=== PATIENT | male | born 1950 | race Caucasian/White ===

== ENCOUNTER 2019-08-03 11:25 | Emergency (ER) | payer MEDICARE, SELFPAY ==
--- NOTE | ~2019-08-03 | CT_ITS ---
EXAMINATION: CT BRAIN W/O DATE: 08/03/2019 12:28 INDICATION: Dizziness. Near syncope. TECHNIQUE: Computed tomography (CT) of the head was performed without intravenous contrast. The dose- length product was 605.33 mGy-cm. The mA was adjusted according to patient size. Iterative reconstruc tion technique was employed. COMPARISON: No prior studies for comparison. FINDINGS: Normal brain parenchymal volume for age. Normal gan-white differentiation. No acute intrac ranial hemorrhage, infarction, mass or mass effect. There are scattered mild periventricular and subc ortical white matter changes, most likely related to small vessel ischemic disease (microangiopathy). No ventriculomegaly or midline shift. Midline sagittal images demonstrate a normal corpus callosum, c raniovertebral junction and sella turcica. Basilar cisterns are patent. Paranasal sinuses and mastoids are pneumatized. No depressed skull fractures. IMPRESSION: 1. No acute intracranial abnormality. Reviewed, dictated and finalized at location A.
--- NOTE | ~2019-08-03 | XR_ITS ---
EXAMINATION: XR chest 2V 08/03/2019 12:28 INDICATION: Dizziness. Bradycardia. PROCEDURE: Two-view chest COMPARISON: No prior studies for comparison. FINDINGS: The lungs are clear. The cardiomediastinal silhouette is within normal limits. There are no pleural effusions. There is no pneumothorax suspected. IMPRESSION: 1: NO ACUTE CARDIOPULMONARY DISEASE. Reviewed, dictated and finalized at location A.
[2019-08-03 11:28] VITALS: BP 197/95; PULSE 57
[2019-08-03 11:30] VITALS: BP 172/101; PULSE 55; RESP 18; TEMP 36.4; O2SAT 100
[2019-08-03 11:32] VITALS: BP 169/92; PULSE 57
--- NOTE | 2019-08-03 11:42 | ED.DIZZY ---
HPI - Dizziness General Chief Complaint: Dizziness Stated Complaint: Dizziness,Light headed Time Seen by Provider: 08/03/19 11:42 Source: patient Mode of arrival: ambulatory Limitations: no limitations History of Present Illness HPI Narrative: 69-year-old man comes in today complaining of feeling dizzy lightheaded overnight. He states that about 2:00 a.m. he got up to the bathroom and felt lightheaded and room spinning which he described as almost like vertigo. Said he had some nausea with it. He states that he had to sit down for approximately 5 minutes before his symptom would resolve. He had several other episodes all of which would resolve with rest. he states he had a mild headache with episodes. He denies chest pain, shortness of breath, vomiting, abdominal pain, diarrhea, black or bloody stools, dysuria, hematuria, and fever. MD elicited complaint: dizziness and lightheadedness Onset (ago): hour(s) (10) Timing: sudden onset Severity: moderate Description: room spinning and lightheadedness Context: change in body position History of similar symptoms: No Exacerbating factors: movement/ambulation Relieving factors: remaining still Associated symptoms: nausea and weakness Related Data Home Medications Medication Instructions Recorded Confirmed atorvastatin 40 mg PO HS 08/03/19 08/03/19 chlorthalidone 25 mg PO DAILY 08/03/19 08/03/19 epinephrine 0.3 ml SUBCUT PRN 08/03/19 08/03/19 hydrocodone-acetaminophen 1 tablet PO PRN 08/03/19 08/03/19 losartan 25 mg PO DAILY 08/03/19 08/03/19 meloxicam 15 mg PO DAILY 08/03/19 08/03/19 omeprazole 20 mg PO DAILY 08/03/19 08/03/19 sertraline 100 mg PO DAILY 08/03/19 08/03/19 Allergies Allergy/AdvReac Type Severity Reaction Status Date / Time No Known Allergies Allergy Verified 08/03/19 11:47 Review of Systems Constitutional: Constitutional: Denies chills, Denies fever(s) and Reports weakness Eyes: Eyes: Denies change in vision and Denies photophobia ENT: Denies dysphagia, Denies nasal congestion and Denies sore throat Cardiovascular: Cardiovascular: Denies chest pain and Denies radiating jaw, neck or arm pain Respiratory: Respiratory: Denies cough, Denies dyspnea and Denies wheezing Gastrointestinal: Gastrointestinal: Denies abdominal pain, Denies diarrhea, Denies nausea and Denies vomiting Genitourinary: Genitourinary: Denies hematuria, Denies dysuria and Denies urinary frequency Integumentary/Breasts: Skin/Breast: Denies pruritus, Denies erythema and Denies rash Neurologic: Denies confusion, Denies vertigo, Denies dizziness, Denies syncope, Reports headache(s) and Denies numbness Hematologic/Lymphatic: Hematologic/Lymphatic: Denies easy bleeding and Denies easy bruising Allergic/Immunologic: Allergic/Immunologic: Denies lip swelling and Denies wheezing PMFSH Past Medical History Medical History Chronic inflammatory demyelinating polyneuropathy Colorectal cancer Hypercholesterolemia Hypertension Surgical History Surgical History H/O neck surgery History of ankle surgery History of colon surgery Social History Social History Smoking status: Never smoker Substance use: current Substance use type: marijuana Living arrangements: with family Exam Const: General: healthy appearing, no acute distress and alert Orientation/consciousness: patient oriented x3 HENMT: Head: normal to inspection Ears: TM's normal bilaterally and EAC's normal Face and sinus: normal facial exam Mouth: Yes Normal oral and palatal mucosa present and Yes moist mucous membranes Throat: posterior oropharynx normal and uvula midline Eyes: Conjunctivae: conjunctivae normal Pupils: Equal, round and reactive pupils present EOM: EOMs intact bilaterally Resp: Effort & Inspection: normal respiratory effo
--- NOTE | 2019-08-03 11:53 | ECG_ITS ---
Measurements Intervals [place] Rate: 47 P: 0 CO: 188 QRS: 48 QRSD: 105 T: 63 QT: 404 QTc: 359 Interpretive Statements SINUS BRADYCARDIA ABNORMAL ECG Electronically Signed On 08-03-2019 12:27:29 CDT by Zhao Mari D.O.
[2019-08-03 12:00] VITALS: BP 153/68; PULSE 48; RESP 15; O2SAT 98
[2019-08-03 12:14] LABS: Hematocrit 41.7 % (37.0-46.0); Hemoglobin 14.5 g/dL (12.4-15.3); Mean Corpuscular HGB Conc 34.8 g/dL (32.0-36.0); Mean Corpuscular Hemoglobin 29.1 pg (27.0-31.0); Mean Corpuscular Volume 83.6 fL (78.0-102.0); Mean Platelet Volume 10.5 fl (8.7-11.0); Platelet Count Result 159 K/mm3 (150-420); Red Blood Count 4.99 M/mm3 (4.70-6.10); Red Cell Distribution Width 12.3 % (11.6-14.4); White Blood Count 3.3 K/mm3 (4.8-10.8)
[2019-08-03 12:28] LABS: Partial Thromboplastin Time 27.8 SEC (22.3-31.6); Prothrombin Time 10.3 Seconds (9.64-11.0)
[2019-08-03 12:30] VITALS: BP 165/76; PULSE 55; RESP 20; O2SAT 99
[2019-08-03 12:37] LABS: Band Neutrophils Percent 0 % (0-6); Basophils Percent Manual 0 % (0-1); Eosinophils Absolute Manual 0.19 K/mm3 (0.02-0.5); Eosinophils Percent Manual 6 % (1-6); Lymphocytes Absolute Manual 0.62 K/mm3 (1.1-4.5); Lymphocytes Percent Manual 19 % (18-44); Monocytes Absolute Manual 0.33 K/mm3 (0.1-0.90); Monocytes Percent Manual 10 % (3-9); Neutrophils Absolute Manual 2.14 K/mm3 (1.3-6.7); Neutrophils Percent Manual 65 % (46-73); Platelet Estimate Adequate (Adequate); Total Cells Counted 100
[2019-08-03 12:41] LABS: Alanine Aminotransferase 62 U/L (16-63); Albumin Level 3.8 g/dL (3.4-5.0); Alkaline Phosphatase 99 U/L (46-116); Anion Gap 12.1 mmol/L (7-16); Aspartate Amino Transferase 38 U/L (15-37); Bilirubin,Total 0.7 mg/dL (0.00-1.00); Blood Urea Nitrogen 22 mg/dL (7-18); Calcium 8.6 mg/dL (8.5-10.1); Carbon Dioxide 27 mmol/L (21-32); Chloride 103 mmol/L (98-108); Estimated CRCL calculation 90 ml/min; Estimated Glomerular Filt Rate > 60; Glucose 121 mg/dL (70-99); Magnesium 1.6 mg/dL (1.8-2.4); Osmolality Calculated 290 mOsm/kg (285-295); Phosphorus 2.9 mg/dL (2.6-4.7); Potassium 4.1 mmol/L (3.5-5.1); Sodium 138 mmol/L (136-145); Total Protein 7.6 g/dL (6.4-8.2)
[2019-08-03 12:42] LABS: Thyroid Stimulating Hormone Reflex 3.38 u/IU/mL (0.36-3.74); Troponin I < 0.02 ng/mL (0.00-0.056)
[2019-08-03 12:56] LABS: Add Urine Microscopic? NO; Appearance Urine Clear (Clear); Bilirubin Urine Negative (Negative); Blood Urine Negative (Negative); Color Urine Yellow (Yellow); Glucose Urine UA Negative (Negative); Ketones Urine Negative (Negative); Leukocyte Esterase Ur Negative LEU/UL (Negative); Nitrate Urine Negative (Negative); Protein Urine Negative (Negative); Specific Grav Ur 1.015 (1.010-1.020); Urobilinogen Urine 0.2 mg/dL (0.2-1.0); pH Urine 5.5 (5.0-8.0)
[2019-08-03 13:03] LABS: Occult Blood Negative (Negative)
[2019-08-03] MEDS: SODIUM CHLORIDE 0.9% IV 1,000 ML 999 ML IV CONT (13:20)
[2019-08-03 14:22] VITALS: BP 172/87; PULSE 50; RESP 15; O2SAT 99
== END 2019-08-03 14:22 | disposition home or self-care (01) ==
PROVIDERS: Emergency Provider Emergency Medicine; PCP Family Medicine
DX: R42 Dizziness and giddiness (principal); Z85.038 Personal history of other malignant neoplasm of large intestine; E78.00 Pure hypercholesterolemia, unspecified; I10 Essential (primary) hypertension; Z79.899 Other long term (current) drug therapy
CPT/HCPCS: 36415; 70450; 71046; 80053; 81003; 83735; 84100; 84443; 84484; 85025; 85610; 85730; 93005; 96360; 99284; J7030

== ENCOUNTER 2021-02-27 10:56 | Emergency (ER) | payer MEDICARE, SELFPAY ==
--- NOTE | ~2021-02-27 | XR_ITS ---
XR forearm LT 2V DATE: 02/27/2021 11:36 INDICATION: Injury, laceration at mid forearm TECHNIQUE: AP and lateral views COMPARISON: None FINDINGS: Prominent dorsal olecranon process spur. Coronoid process spurring. No fracture or dislocation, periosteal reaction or bone destruction. There is a soft tissue laceration along the mid to distal forearm laterally. No radiopaque soft tissu e foreign body. Osteoarthritis at the first carpometacarpal joint. IMPRESSION: Soft tissue laceration; no radiographic foreign body No fracture or dislocation Reviewed, dictated and finalized at location A. R PURIFICATION CHEMIST
[2021-02-27 11:15] VITALS: BP 145/105; PULSE 96; RESP 16; TEMP 37.1; O2SAT 98
--- NOTE | 2021-02-27 11:36 | ED.UPPEXIN ---
HPI - Extremity Injury (Upper) General Chief Complaint: Extremity Injury, Upper Stated Complaint: left arm injury Time Seen by Provider: 02/27/21 10:58 Source: patient and RN notes reviewed Mode of arrival: ambulatory Limitations: no limitations History of Present Illness HPI narrative: laceration to left forearm complaint: injury to: left and forearm Onset (ago): hour(s) (1) Other Extremity Injury: Left: forearm Other injuries: none Place: home Severity: mild Severity scale (1-10): 2 Relieving factors: none Exacerbating factors: none Context: laceration Associated symptoms: denies other symptoms Treatments prior to arrival: bandage Related Data Home Medications Medication Instructions Recorded Confirmed atorvastatin 25 mg PO HS 08/03/19 02/27/21 chlorthalidone 25 mg PO DAILY 08/03/19 08/03/19 epinephrine 0.3 ml SUBCUT PRN 08/03/19 08/03/19 losartan 50 mg PO DAILY 08/03/19 02/27/21 meloxicam 50 mg PO DAILY 08/03/19 02/27/21 sertraline 100 mg PO DAILY 08/03/19 02/27/21 Allergies Allergy/AdvReac Type Severity Reaction Status Date / Time No Known Allergies Allergy Verified 08/03/19 11:47 Review of Systems Review of Systems: All systems reviewed & are unremarkable except as noted in HPI and below PMFSH Past Medical History Medical History (Updated 02/27/21 @ 12:40 by Eddie Montgomery MD) Chronic inflammatory demyelinating polyneuropathy Colorectal cancer Hypercholesterolemia Hypertension Surgical History Surgical History H/O neck surgery History of ankle surgery History of colon surgery Social History Social History Smoking status: Never smoker Substance use: current Substance use type: marijuana Exam Const: General: no acute distress and alert Orientation/consciousness: patient oriented x3 HENMT: Head: normal to inspection Ears: external ears normal and TM's normal bilaterally General nose exam: Normal external nose present and Normal nares present Mouth: Yes lip normal and Yes moist mucous membranes Eyes: Conjunctivae: conjunctivae normal Pupils: Equal, round and reactive pupils present EOM: EOMs intact bilaterally Neck: Neck: normal visual inspection and no lymphadenopathy Chest: Chest palpation & inspection: normal inspection of the chest Resp: Effort & Inspection: normal respiratory effort Auscultation: clear to auscultation bilaterally Cardio: Rate: regular rate Rhythm: regular rhythm GI: GI Palp: Yes Soft to palpation and No Tenderness to palpation present (GI) : General: Yes bladder normal to palpation and Yes no CVA tenderness Male General Exam: Yes normal external exam Back/Spine/Pelvis: Back: no CVA tenderness Skin: General skin exam: normal color Neuro: General: patient oriented x3, moves all extremities, no meningeal signs, no focal motor deficits and CN's II-XI intact bilaterally Extrem: General: no pedal edema Other: 5 cm gaping left forearm laceration. no acute bleeding, swelling or deformity. Psych: Appearance: grossly normal and well kempt Mental Status: mental status grossly normal Affect: normal affect Thought content: Yes Normal thought content present Course Course Emergency Course: Pt was stable in the ED. laceration was repaired. Reevaluation(s) Reevaluation #1: VSS. less pain. Date: 02/27/21 Time: 11:46 Vital Signs Vital signs: Vital Signs Temperature 37.1 C 02/27/21 11:15 Pulse Rate 96 02/27/21 11:15 Respiratory Rate 16 02/27/21 11:15 Blood Pressure 145/105 H 02/27/21 11:15 Pulse Oximetry 98 02/27/21 11:15 Temperature 37.1 C 02/27/21 11:15 Pulse Rate 96 02/27/21 11:15 Respiratory Rate 16 02/27/21 11:15 Blood Pressure 145/105 H 02/27/21 11:15 Pulse Oximetry 98 02/27/21 11:15 Procedures Laceration left forearm laceration: Date: 02/27/21 Time: 11:51 Sit
[2021-02-27] MEDS: cloNIDine HCL 0.2 MG TABLET PO (11:50)
[2021-02-27] MEDS: ACETAMINOPHEN 325 MG TABLET 650 MG PO (11:50)
[2021-02-27] MEDS: TETANUS,DIPHTHERIA,AC PERTUSSIS ADULT 0.5 ML (ADACEL) IM (11:51)
[2021-02-27] MEDS: LIDOCAINE HCL 2% PF INJ 5 ML VIAL INFILTRATE (11:52)
--- NOTE | 2021-02-27 12:32 | PC.NURSE ---
Non adhearant dressing applied over sutures
[2021-02-27 12:44] VITALS: BP 155/89; PULSE 68; RESP 16; TEMP 37.1; O2SAT 97
== END 2021-02-27 12:45 | disposition home or self-care (01) ==
PROVIDERS: Emergency Provider Emergency Medicine; PCP Family Medicine
DX: S51.812A Laceration without foreign body of left forearm, initial encounter (principal); I10 Essential (primary) hypertension
CPT/HCPCS: 12002; 73090; 90471; 90715; 99282; 99283; A9270

== ENCOUNTER 2022-09-18 07:45 | Emergency (ER) | payer MEDICARE, SELFPAY ==
[2022-09-18] VITALS (13 sets, daily range): BP systolic 145–174; BP diastolic 82–122; PULSE 95–115; RESP 16–17; TEMP 36.6–36.8; O2SAT 95–100
--- NOTE | ~2022-09-18 | XR_ITS ---
Supine, upright, and left lateral decubitus views of the abdomen Clinical history: Small bowel obstruction Findings: Bowel gas pattern is nonspecific. No evidence for obstruction or free air. Colostomy noted. Cholecystectomy clips noted. No abnormal mass lesion or calcification is seen. There is 13 degrees d extroscoliosis of the lumbar spine. Impression: No evidence for bowel obstruction. Colostomy. Reviewed, dictated and finalized at location . Impression: No evidence for bowel obstruction. Colostomy.
--- NOTE | 2022-09-18 07:59 | ED.NAVMDI ---
HPI - Nausea/Vomiting/Diarrhea General Chief complaint: Nausea/Vomiting/Diarrhea Stated complaint: nausa Time Seen by Provider: 09/18/22 07:57 Source: patient and family Mode of arrival: ambulatory Limitations: no limitations History of Present Illness HPI Narrative: Patient is a 72-year-old male with no recent travel or antibiotic use having nausea vomiting diarrhea. Patient has a chronic right lower quadrant abdomen colostomy secondary to colon cancer resection a few years ago. He has increased colostomy loose stool over the past 4 days. He has been having difficulty eating and drinking secondary to nausea. No abdominal pain. MD elicited complaint: nausea, vomiting and diarrhea Pertinent past history: anorexia Onset (ago): day(s) (4) Description of vomiting: watery Description of diarrhea: watery Associated nausea: Yes Associated abdominal pain: No Location of pain: none Exacerbating factors: eating Relieving factors: rest Associated symptoms: denies other symptoms Related Data Home Medications Medication Instructions Recorded Confirmed atorvastatin 40 mg tablet 25 mg PO HS 08/03/19 09/18/22 chlorthalidone 25 mg tablet 25 mg PO DAILY 08/03/19 08/03/19 epinephrine 0.3 mg/0.3 mL 0.3 ml subcut PRN 08/03/19 08/03/19 injection, auto-injector losartan 25 mg tablet 50 mg PO DAILY 08/03/19 09/18/22 meloxicam 15 mg tablet 50 mg PO DAILY 08/03/19 09/18/22 sertraline 100 mg tablet 100 mg PO DAILY 08/03/19 09/18/22 Allergies Allergy/AdvReac Type Severity Reaction Status Date / Time No Known Allergies Allergy Verified 09/18/22 09:06 Review of Systems Review of Systems: All systems reviewed & are unremarkable except as noted in HPI and below Constitutional: Constitutional: Reports no additional constitutional complaints Eyes: Eyes: Reports no additional eye complaints ENT: Reports system reviewed and no additional complaints, except as documented Cardiovascular: Cardiovascular: Reports no additional cardiovascular complaints Respiratory: Respiratory: Reports no additional respiratory complaints Gastrointestinal: Gastrointestinal: Reports no additional gastrointestinal complaints, Reports diarrhea, Reports nausea and Reports vomiting Genitourinary: Genitourinary: Reports no additional male genitourinary complaints Musculoskeletal: Musculoskeletal: Reports no additional musculoskeletal complaints Integumentary/Breasts: Skin/Breast: Reports system reviewed and no additional complaints, except as docu Neurologic: Reports system reviewed and no additional complaints, except as documented Psychiatric: Psychiatric: Reports no additional psychiatric complaints Endocrine: Endocrine: Reports no additional endocrine complaints Hematologic/Lymphatic: Hematologic/Lymphatic: Reports no additional hematologic/lymphatic complaints Allergic/Immunologic: Allergic/Immunologic: Reports no additional allergic/immunologic complaints PMFSH Past Medical History Medical History (Updated 09/18/22 @ 09:07 by Saqib Faye MD) Chronic inflammatory demyelinating polyneuropathy Colorectal cancer Hypercholesterolemia Hypertension Surgical History Surgical History H/O neck surgery History of ankle surgery History of colon surgery Social History Social History Smoking status: Never smoker Substance use: current Substance use type: marijuana Living arrangements: with family Exam Const: General: healthy appearing, no acute distress and alert Nutritional Appearance: well nourished Orientation/consciousness: patient oriented x3 Limitations: no limitations HENMT: Head: normal to inspection Eyes: Conjunctivae: conjunctivae normal Neck: Neck: normal visual inspection Chest: Chest palpation & inspection: normal inspection of the chest Resp: Effort & Inspection: normal respiratory effort Auscultat
[2022-09-18] MEDS: SODIUM CHLORIDE 0.9% IV 1,000 ML 999 ML IV CONT (08:27)
[2022-09-18] MEDS: ONDANSETRON INJ 4 MG/2 ML VIAL IV PUSH (08:28)
[2022-09-18 08:44] LABS: Basophils Absolute Auto 0.05 K/mm3 (0.00-0.10); Basophils Percent Auto 0.8 % (0.0-1.0); Eosinophils Absolute Auto 0.08 K/mm3 (0.02-0.50); Eosinophils Percent Auto 1.3 % (1.0-6.0); Hemoglobin 16.3 g/dL (12.4-15.3); Immature Granulocyte Absolute 0.03 K/mm3 (0.00-0.00); Immature Granulocyte Percent A 0.5 % (0.0-0.0); Lymphocytes Percent Auto 16.1 % (18.0-42.0); Mean Corpuscular HGB Conc 36.2 g/dL (32.0-36.0); Mean Corpuscular Hemoglobin 30.6 pg (27.0-31.0); Mean Corpuscular Volume 84.6 fL (78.0-102.0); Mean Platelet Volume 10.3 fl (8.7-11.0); Monocytes Absolute Auto 0.76 K/mm3 (0.10-0.90); Monocytes Percent Auto 12.2 % (2.0-11.0); Neutrophils Absolute Auto 4.3 K/mm3 (1.7-7.2); Neutrophils Percent Auto 69.1 % (50.0-70.0); Platelet Count Result 243 K/mm3 (150-420); Red Blood Count 5.32 M/mm3 (4.70-6.10); Red Cell Distribution Width 13.1 % (11.6-14.4); White Blood Count 6.2 K/mm3 (4.8-10.8)
[2022-09-18 08:59] LABS: Alanine Aminotransferase 82 U/L (16-63); Albumin Level 4.1 g/dL (3.4-5.0); Alkaline Phosphatase 104 U/L (46-116); Anion Gap 13 mmol/L (8-16); Aspartate Amino Transferase 49 U/L (15-37); Bilirubin,Total 1.5 mg/dL (0.00-1.00); Blood Urea Nitrogen 68 mg/dL (7-18); Calcium 9.4 mg/dL (8.5-10.1); Carbon Dioxide 21 mmol/L (21-32); Chloride 101 mmol/L (98-108); Estimated Glomerular Filt Rate 51; Glucose 181 mg/dL (70-99); Magnesium 1.9 mg/dL (1.8-2.4); Osmolality Calculated 304 mOsm/kg (285-295); Potassium 3.9 mmol/L (3.5-5.1); Sodium 135 mmol/L (136-145)
[2022-09-18] MEDS: SODIUM CHLORIDE 0.9% IV 500 ML 999 ML IV CONT (09:10)
[2022-09-18 09:21] LABS: Influenza A QL RT-PCR Negative (Negative); Influenza B QL RT-PCR Negative (Negative); SARS-CoV-2 RNA PCR Negative (Negative)
[2022-09-18 09:22] LABS: RSV RNA, RT-PCR Negative (Negative)
== END 2022-09-18 10:05 | disposition home or self-care (01) ==
PROVIDERS: Emergency Provider Emergency Medicine; PCP Family Medicine
DX: E86.0 Dehydration (principal); K52.9 Noninfective gastroenteritis and colitis, unspecified; N17.9 Acute kidney failure, unspecified; I10 Essential (primary) hypertension; Z79.1 Long term (current) use of non-steroidal anti-inflammatories (NSAID); Z85.038 Personal history of other malignant neoplasm of large intestine; Z20.822 Contact with and (suspected) exposure to COVID-19
CPT/HCPCS: 36415; 74019; 80053; 83735; 85025; 87637; 96361; 96374; 99284; J2405; J7030; J7040

== ENCOUNTER 2024-07-23 07:57 | Outpatient (CLI) | payer MEDICARE, SELFPAY ==
--- OUTSIDE RECORDS SUMMARY | 2024-07-23 08:04 | XMS_ITS | Continuity of Care Document ---
Author Organization [facility] Address [address] [place] [address] Phone Care Team Providers Care Coining Press Operator Name Role Phone Mancera OD, Prasanna Unavailable Unavailable Advance Directives Directive Yes / No Effective Date File Name No Information Encounters Encounter Description Practice Location Reason(s) For Visit Diagnoses Date Provider Providers Copied on Encounter Merged with [facility], [address], [place], [place], [id number], [place] tel:[phone] [facility] [place]note 2[place] No Information 3-200 2 Mancera OD Prasanna. [address] , [address], [place], [address], [place]. tel:[phone] Family History Family Member Type Diagnosis Age At Onset No Information Payers Payer name Insurance type Covered democrat ID Authoriza tion(s) [facility] Commercial CI [id number] Social History Type Description Quantity Date Captured Comments Sex Male Smoking Status No Information Chief Complaint And Reason For Visit No Information Reason For Referral Reason For Referral No Information History Of Present Illness Encounter Date Complaint History Of Prese nt Illness No Information Functional Status Date Functional Assessmen t No Information Instructions Date Instruction Additional Infor mation No Information Assessments Type Assessment Date No Information Patient Care Teams Name Effective Dates (start - stop) Status Members No Information
--- OUTSIDE RECORDS SUMMARY | 2024-07-23 08:04 | XMS_ITS ---
Author Organization [employer] [place] [address] Care Team Providers Care Hot Dip Galvanizer Name Role Phone Mp Barnes MD Primary Care Provider [phone] Active Problems Problem Noted Date Diagnosed Date Protein-calorie malnutrition, severe 12/06/2020 CIDP (chronic inflammatory demyelinating polyneu ropathy) 11/13/2016 Overview (11/13/2016): Dr Emerson @ [facility] Colonic adenoma 07/09/2011 Overview (11/28/2020): Colonoscopy 11/2020: 1 small tubular adenoma. Follow up screening colonoscopy 3 year? To undergo ileostomy. Will likely not be able to undergo oral colon prep in future. 11/2016: Patent colo-rectal anastomosis. Normal distal ileum. 06/2012: 2 small adenomas. 02/2009: Small cecal polyp. 2006: [place]-rectal/anal anastomosis. Few proximal colonic diverticuli. Abdominal pain/LLQ 02/12/2009 Hx SBO 02/12/2009 Overview (07/12/2011): Ex-lap SBO 2001. Dr. Zamudio. Rectal cancer 11/08/2008 Overview (07/09/2011): Dx: 02/1999. S/P low anterior resection. Diarrhea 11/08/2008 Uncontrolled hypertension Gastroesophageal reflux disease Hyperlipidemia Anxiety state Bilious vomiting with nausea Status post exploratory laparotomy Ileus Incontinence of feces Nausea and vomiting HTN (hypertension), benign Current Treatment and Therapy Plans No current plan information found. Past Treatment and Therapy Plans No past plan information found. Lifetime Dose Tracking * Chemical Lifetime Dose Automatic Entry Manual Entr y Effective Dose 18.8 mSv 18.8 mSv 0 mSv Total DLP 2,350 DLP 2,350 DLP 0 DLP CTDIvol Max 83.5 mGy 83.5 mGy 0 mGy CTDIvol Min 83.5 mGy 83.5 mGy 0 mGy
--- OUTSIDE RECORDS SUMMARY | 2024-07-23 08:04 | XMS_ITS | Encounter Summary ---
Author Organization [facility] Address [address] [place] [address] Care Team Providers Care Stack Matcher Name Role Phone Mp Barnes MD Primary Care Provider [phone] Encounter Details Date Type Department Care Team (Late st Contact Info) Description 11/29/2020 Lab Requisition [facility] Laboratory Services [id number] [place] [address] Kimmy Sosa MD [address] [place] [address] Full incontinence of feces Social History Tobacco Use Types Packs/Day Years Used Date Smoking Tobacco: Former Cigarettes Q uit: 1985 Smokeless Tobacco: Never Alcohol Use Standard Drinks/Week Comments Yes 2 (1 standard drink = 0.6 oz pur e alcohol) weekends Sex and Gender Information Value Date Recorded Sex Assigned at Not on file Legal Sex Male 6:06 AM [employer] Gender Identity Not on file Sexual Orientation Not on file COVID-19 Exposure Response Date Recorded In the last month, have you been in contact with someone who was confirmed or suspected to have Coronavirus / COVID-19? No / Unsure 11/29/2020 1:22 PM CDT documented as of this encounter Plan of Treatment Not on file documented as of this encounter Procedures Procedure Name Priority Date/Time Associated Diagnosis Comments CBC WITH DIFFERENTIAL Stat 11/29/2020 12:59 PM CDT Full incontinence of feces BASIC METABOLIC PANEL Stat 11/29/2020 12:59 PM CDT Full incontinence of feces documented in this encounter Results * (ABNORMAL) BASIC METABOLIC PANEL (11/29/2020 12:59 PM CDT) SODIUM 140 136 - 145 mmol/L 11/29/2020 3:09 PM T [facility] [facility] LABORATORY SERVICES [facility] POTASSIUM 4.4 3.5 - 5.0 mmol/L 11/29/2020 3:09 PM T [facility] Comment: Testing was performed on Serum. Specimen of choice is [place] Heparinized Plasma. Serum Potassium Reference Range: 0 years - 150 years 3.5 - 5.1 mmol/L CHLORIDE 103 98 - 107 mmol/L 11/29/2020 3:09 PM T [employer] LABORATORY [facility] CO2 27 22 - 29 mmol/L 11/29/2020 3:09 PM T [facility] CALCIUM 9.3 8.6 - 10.2 mg/dL 11/29/2020 3:09 PM T [facility] BUN 23 8 - 23 mg/dL 11/29/2020 3:09 PM T [facility] LABORATORY [facility] CREATININE 0.75 0.67 - 1.17 mg/dL 11/29/2020 3:09 PM T [facility] LABORATORY [facility] Comment:The GFR result is no t clinically significant on patients <18 or >70 years of age. GLUCOSE 113(H) 74 - 99 mg/dL 11/29/2020 3:09 PM T [facility] GFR >60 mL/min/1.7 3 sq meter 11/29/2020 3:09 PM T [facility] Comment: eGFR has not been validated for use in the elderly (> 70 years of age), women, patients with serious co-morbid conditions, or persons with extremes of body size or muscle mass and should also be interpreted with caution in patients with acute kidney failure, dialysis dependent patients, patients reporting exceptional dietary intake (e.g. vegetarian diet, high protein diets, creatine supplementation), and patients with severe liver disease. Based on National Kidney Disease Education Program If patient is , please refer to the GFR result. GFR, >60 mL/min/1.7 3 sq meter 11/29/2020 3:09 PM CDT [facility] - [facility] ANION GAP 10 8 - 16 mmol/L 11/29/2020 3:09 PM CDT [employer] [facility]ATORY [facility] - [facility] Blood Collection / Unknown 11/29/2020 12:59 PM CDT 11/29/2020 2:24 PM CDT us Kimmy Sosa MD CHEMISTRY ORDERABLES Final Re sult [facility]ORY SERVICES - [facility]# [id number] [facility] [place] [id number] * (ABNORMAL) CBC WITH DIFFERENTIAL (11/29/2020 12:59 PM CDT) WBC 3.8(L) 4.0 - 9.8 K/uL 11/29/2020 2:44 PM CDT [facility] [employer] [facility] LABORATORY SERVICES - [facility] RBC 4.43(L) 4.50 - 5.40 M/uL 11/29/2020 2:44 PM CDT [facility] [employer] [facility] LABORATORY SERVICES - [facility] HEMOGLOBIN 13.1(L) 13.6 - 16.5 g/dL 11/29/2020 2:44 PM CDT [facility] LABORATORY SERVICES - [facility] HEMATOCRIT 39.3(L) 40.0 - 48.0 % 11/29/2020 2:44 PM CDT [facility] - . [facility] MCV 88.7 82.0 - 99.0 fL 11/29/2020 2:44 PM CDT [facility] LABORATORY SERVICES - . [facility] MCH 29.6 27.2 - 32.6 pg 11/29/2020 2:44 PM CDT [facility] [facility] LABORATORY SERVICES - . [facility] MCHC 33.3 31.5 - 35.5 g/dL 11/29/2020 2:44 PM CDT [facility] [facility] LABORATORY SERVICES - [facility] RDW 13.0 11.5 - 14.5 % 11/29/2020 2:44 PM CDT [facility]ATORY SERVICES - [facility] RDW-STDEV 41.8 37.1 - 48.7 fL 11/29/2020 2:44 PM CDT [facility] PLATELETS 251 140 - 350 K/uL 11/29/2020 2:44 PM CDT [facility]ATORY SERVICES - [facility] MPV 10.3 9.3 - 12.4 fL 11/29/2020 2:44 PM CDT [facility] - [facility] NEUTROPHILS 61 % 11/29/2020 2:44 PM CDT [facility] LYMPHOCYTES 26 % 11/29/2020 2:44 PM CDT [facility] - [facility] MONOCYTES 11 % 11/29/2020 2:44 PM CDT [facility] - [facility] EOSINOPHILS 2 % 11/29/2020 2:44 PM CDT [facility] - [facility] BASOPHILS 1 % 11/29/2020 2:44 PM CDT [facility] - [facility] IMMATURE GRANULOCYTES 0 % 11/29/2020 2:44 PM CDT [facility] - [facility] NEUTROPHIL ABSOLUTE 2.30 1.90 - 7.00 K/uL 11/29/2020 2:44 PM CDT [facility] - [facility] LYMPHOCYTE ABSOLUTE 0.97 0.70 - 4.50 K/uL 11/29/2020 2:44 PM CDT [facility] MONOCYTE ABSOLUTE 0.43 0.10 - 1.30 K/uL 11/29/2020 2:44 PM CDT [facility]ORY SERVICES - [facility] EOSINOPHIL ABSOLUTE 0.07 0.00 - 0.70 K/uL 11/29/2020 2:44 PM CDT [facility] - [facility] BASOPHILS ABSOLUTE 0.02 0.00 - 0.20 K/uL 11/29/2020 2:44 PM CDT [facility] SERVICES - [facility] IMMATURE GRANULOCYTES ABSOLUTE 0.01 0.00 - 0.03 K/uL 11/29/2020 2:44 PM CDT [facility] - [facility] Blood Collection / Unknown 11/29/2020 12:59 PM CDT 11/29/2020 2:24 PM CDT us Kimmy Sosa MD HEMATOLOGY ORDERABLES Final R esult [facility]# [id number] [address] [place] [id number] documented in this encounter Visit Diagnoses Diagnosis Full incontinence of feces documented in this encounter Care Teams Stack Matcher Relationship Specialty Start Date End Date Mp Barnes MD PCP - General Family Practice 01/24/11 documented as of this encounter
--- OUTSIDE RECORDS SUMMARY | 2024-07-23 08:04 | XMS_ITS | Clinical Summary ---
Author Organization [employer] [facility] Address [address] [place] [address] Care Team Providers Care On Site Manager Name Role Phone Mp Barnes MD Primary Care Provider [phone] Allergies No known active allergies Medications aspirin (ECOTRIN EC) 81 mg Tablet, Delayed Release (E.C.) Take 81 mg by mouth daily. Active meloxicam (MOBIC) 7.5 mg tablet Take 7.5 mg by mouth daily. Active dicyclomine (BENTYL) 20 mg tablet Take 1 Tablet (20 mg) by mouth every 6 hours as needed (abdominal cramping). 360 Tablet 7 Active atorvastatin (LIPITOR) 20 mg tablet Take 20 mg by mouth late in the day. Active Cholestyramine-S ucrose 4 gram Powder Take 1 SCOOP (4 Grams) by mouth 2 times daily Do not take other meds for 1 hour before or 3 hours after this medication.. 378 Gram 5 9 Active Additional Information Patient taking differently:4 Gram OralTWO TIMES DAILY PRN, Do not take other meds for 1 hour before or 3 hours after this medication., Reported on 12/05/2020 losartan (COZAAR) 25 mg tablet Take 50 mg by mouth daily. 9 Active omeprazole (PriLOSEC) 20 mg Capsule, Delayed Release(E.C.) Take 1 Capsule (20 mg) by mouth daily. 30 Capsule 11 9 Active sertraline (Zoloft) 100 mg tablet Take 200 mg by mouth daily. Active sodium chloride 0.9% 0.9 Parenteral Solution 250 mL with riTUXimab 10 mg/mL Concentrate Inject by intravenous injection one time only. Every 10 weeks Active cyanocobalamin (VITAMIN B-12) 500 mcg tablet Take 500 mcg by mouth daily. Active EPINEPHrine (EPIPEN) 0.3 mg/0.3 mL Auto-Injector 0 Active labetaloL (NORMODYNE) 100 mg tablet Take 1 Tablet (100 mg) by mouth 2 times daily. ( hold if SBP less than 140) 60 Tablet 1 Active oxyCODONE-acetam inophen (PERCOCET) 5-325 mg tabletIndication s:Bilious vomiting with nausea Take 1 Tablet by mouth every 4 hours as needed for Pain. Max Daily Amount: 6 Tablets 40 Tablet 1 Active tiZANidine (ZANAFLEX) 2 mg Tablet Take 2 mg by mouth. 1 Active ondansetron (ZOFRAN) 4 mg Tablet Take 4 mg by mouth. 1 Active Active Problems Problem Noted Date Diagnosed Date Protein-calorie malnutrition, severe 12/06/2020 CIDP (chronic inflammatory demyelinating polyneu ropathy) 11/13/2016 Overview (11/13/2016): Dr Emerson @ [facility] Colonic adenoma 07/09/2011 Overview (11/28/2020): Colonoscopy 11/2020: 1 small tubular adenoma. Follow up screening colonoscopy 3 year? To undergo ileostomy. Will likely not be able to undergo oral colon prep in future. 11/2016: Patent colo-rectal anastomosis. Normal distal ileum. 06/2012: 2 small adenomas. 02/2009: Small cecal polyp. 2006: [place]-rectal/anal anastomosis. Few proximal colonic diverticuli. Abdominal pain/LLQ 02/12/2009 Hx SBO 02/12/2009 Overview (07/12/2011): Ex-lap SBO 2001. Dr. Zamudio. Rectal cancer 11/08/2008 Overview (07/09/2011): Dx: 02/1999. S/P low anterior resection. Diarrhea 11/08/2008 Uncontrolled hypertension Gastroesophageal reflux disease Hyperlipidemia Anxiety state Bilious vomiting with nausea Status post exploratory laparotomy Ileus Incontinence of feces Nausea and vomiting HTN (hypertension), benign Immunizations Immunization Administration Dates Next Due INFLUENZA VACCINE HIGH DOSE QUADRIVALENT 65 YR U P PF IM 12/13/2020 Family History Medical History Relation Name Comments Ovarian Cancer Mother Colon Cancer Neg Hx Relation Name Status Comments Mother Social History Tobacco Use Types Packs/Day Years Used Date Smoking Tobacco: Former Cigarettes Q uit: 1985 Smokeless Tobacco: Never Alcohol Use Standard Drinks/Week Comments Yes 2 (1 standard drink = 0.6 oz pur e alcohol) weekends Sex and Gender Information Value Date Recorded Sex Assigned at Not on file Legal Sex Male 6:06 AM LAB AID Gender Identity Not on file Sexual Orientation Not on file Last Filed Vital Signs Vital Sign Reading Time Taken Comments Blood Pressure 142/81 01/04/2021 3:44 PM [facility] Pulse 89 01/04/2021 3:44 PM [facility] Temperature 36.7 C (98 F) 01/03/2021 2:00 PM LAB A[facility] Respiratory Rate 18 01/03/2021 2:00 PM LAB A[facility] Oxygen Saturation 98% 12/25/2020 11:59 AM CDT Inhaled Oxygen Concentration - - Weight 97.1 kg (214 lb) 01/04/2021 3:44 PM LAB A[facility] Height 195.6 cm (6' 5) 01/04/2021 3:44 PM LAB [facility] Body Mass Index 25.38 01/04/2021 3:44 PM [facility] Plan of Treatment Health Maintenance Due Date Last Done Comments DTAP/TDAP/TD VACCINES (1 - Tdap) 1967 ZOSTER VACCINE (1 of 2) 1998 RSV VACCINE (60+ or ) (1 - 1-dose 75+ series) 2023 INFLUENZA VACCINE (#1) 2023 , 11/26/2019, 01/17/2019, Additional history exists COLORECTAL SCREENING 11/27/2023 11/26/2020, 11/26/2020, 11/26/2020, Additional history exists PNEUMOCOCCAL VACCINE 50+ YEARS Completed 09/05/2019 , 06/08/2018 Medical Devices Implanted Type Area Safe Deposit Attendant Device Identifier Shelf Expiration Date Model / Serial / Lot Barrier Seprafilm 5x6in [id number] - [id number] Implanted:Qty: 1 on 12/04/2020 by Kimmy Sosa MD at [facility] Adhesion Barrier N/A: Abdomen [employer] 05/11/2023 [id number] / / [id number] Barrier Seprafilm 5x6in [id number] - [id number] Implanted:Qty: 1 on 12/04/2020 by Kimmy Sosa MD at [facility] [employer] Barrier N/A: Abdomen [employer] 05/03/2023 [id number] / / [id number] Screw Left: Ankle Procedures Procedure Name Priority Date/Time Associated Diagnosis Comments COLONOSCOPY REPORT 11/26/2020 3: 27 PM CDT from Last 3 Months or Most Recently Relevant to Health Maintenance Results * COLONOSCOPY REPORT (11/26/2020 3:27 PM CDT) Narrative Procedure Note Leland Sparrow MD - 11/26/2020 3:26 PM CDT [facility] Endoscopy Patient Name: Faizan Muñiz Procedure Date: 11/26/2020 Date of : 1950 Attending MD: Leland Sparrow MD Procedure: Colonoscopy Indications: High risk colon cancer surveillance: Personal history of colon cancer Providers: Leland Sparrow MD Referring MD: Mp Barnes MD, Kimmy Sosa MD Medicines: Propofol per Anesthesia Complications: No immediate complications. Procedure: Informed consent was obtained for the procedure, including moderate sedation after risks were discussed. Based on the pre-procedure assessment, including review of the patient's medical history, medications, allergies, and review of systems, the patient was deemed to be an appropriate candidate for sedation. A timeout was performed. Continuous ECG monitoring, pulse oximetry, blood pressure monitoring, and direct observation were performed. The scope was introduced through the anus and advanced to the terminal ileum, with identification of the appendiceal orifice and IC valve. The colonoscopy was performed without difficulty. The patient tolerated the procedure well. The quality of the bowel preparation was fair. The colon was copiously irrigated and suctioned and the ultimate quality of prep was adequate. At completion of the exam, the scope was advanced to the cecum and all residual air was removed. Estimated Blood Loss: Estimated blood loss: none. Findings: A 4 mm polyp was found in the ascending colon. The polyp was sessile. The polyp was removed with a cold snare. Resection and retrieval were complete. There was evidence of a prior end-to-end colo-rectal anastomosis in the rectum. This was patent and was characterized by healthy appearing mucosa. The anastomosis was traversed. Impression: - Preparation of the colon was fair. - 1 small colon polyp. Resected and retrieved. - Patent end-to-end colo-rectal anastomosis, characterized by healthy appearing mucosa. Recommendation: - Await pathology results. Leland Sparrow MD 11/26/2020 3:26:22 PM This report has been signed electronically. Number of Addenda: [id number] [place] [address] Leland Sparrow MD GI PROCEDURE ORDERABLES Final Re sult from Last 3 Months or Most Recently Relevant to Health Maintenance Insurance RX [employer] Medicare Part D Advance Directives For more information, please contact: [phone] * Full Code (Latest Code Status on File) Date Activated Date Inactivated Comments 12/12/2020 6:41 AM 12/25/2020 3:49 PM * Full Code Date Activated Date Inactivated Comments 12/04/2020 6:56 PM 12/11/2020 2:23 PM * Full Code Date Activated Date Inactivated Comments 12/04/2020 9:32 AM 12/04/2020 6:56 PM * Full Code Date Activated Date Inactivated Comments 12/04/2020 7:59 AM 12/04/2020 9:31 AM * Full Code Date Activated Date Inactivated Comments 11/26/2020 2:36 PM 11/26/2020 5:59 PM Care Teams On Site Manager Relationship Specialty Start Date End Date Mp Barnes MD PCP - General Family Practice 01/24/11
--- OUTSIDE RECORDS SUMMARY | 2024-07-23 08:04 | XMS_ITS | Clinical Summary ---
Author Organization 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 Role Phone Mp Barnes MD Primary Care Provider [phone] Shyam Power MD PhD Unavailable + Allergies No known active allergies Medications nitroglycerin (NITROSTAT) 0.[address] 1 tablet (0.4 mg total) under the tongue as needed 6 Active cholecalciferol (VITAMIN D-3) 1,000 unit Take 1 tablet/capsu le (1,000 Units total) by mouth daily Active EPINEPHrine 0.3 mg/0.3 mL auto-injection syringe 0 Active meclizine (ANTIVERT) 25 mg tablet as needed 0 Active Xembify 4 gram/20 mL (20 %) solution 3 Active Xembify 10 gram/50 mL (20 %) solution 3 Active atorvastatin (LIPITOR) 40 mg tablet Take 1 tablet (40 mg total) by mouth daily 90 tablet 3 4 Active losartan (COZAAR) 100 mg tabletIndications:P rimary hypertension Take 1 tablet (100 mg total) by mouth daily 90 tablet 3 4 10/21/19 25 Active HYDROcodone-acetami nophen (NORCO) 5-325 mg per tabletIndications:S abhilash stenosis of lumbar region, unspecified whether neurogenic claudication present,Chronic inflammatory demyelinating polyneuropathy (HCC),Cervical stenosis of spine Take 1 tablet by mouth every 6 (six) hours as needed for pain DX: M48.061 G61.81 M48.02 60 tablet 5 Active meloxicam (MOBIC) 15 mg tablet Take 1 tablet (15 mg total) by mouth daily 100 tablet 5 Active chlorthalidone (HYGROTON) 25 mg tablet TAKE HALF A TABLET BY MOUTH DAILY 45 tablet 3 5 Active sertraline (ZOLOFT) 100 mg tabletIndications:M oderate episode of recurrent major depressive disorder (HCC),Anxiety TAKE TWO TABLETS BY MOUTH DAILY 180 tablet 1 5 Active Active Problems Problem Noted Date Diagnosed Date Prostate cancer screening 08/24/2023 Assessment & Plan (08/24/2023 9:07 AM CDT): No change in urination. No dysuria, no hematuria. Annual physical exam 08/24/2023 Assessment & Plan (08/24/2023 9:08 AM CDT): Focus of exam is preventative in nature. Reviewed immunizaitons, reivewed sun/skin cancer screening. Reviewed aerobic exercise and will monito rerpsonse. Reivweed fall prevention. WIll continue to monitor response. Dehydration 05/07/2023 Gastroenteritis 05/07/2023 Injury of kidney 05/07/2023 Chronic inflammatory demyelinating polyneuropath y 05/07/2023 PVC (premature ventricular contraction) 10/21/19 23 Assessment & Plan (10/20/2022 11:24 AM CDT): Irregular upon examination today. ECG noted NSR with PAC's and PVC's. 3 Day Holter to further assess burden and assess for underlying arrhythmia. Left hip pain 06/27/2021 Forearm laceration 06/12/2021 Bilious vomiting with nausea 06/12/2021 Gastroesophageal reflux disease 06/12/2021 Ileus 06/12/2021 Status post exploratory laparotomy 06/12/2021 BMI 23.0-23.9, adult 01/03/2021 Assessment & Plan (01/03/2021 10:11 AM HEAD OF VISUAL MERCHANDISING): Discussed healthy diet and importance of regular physical activity. BMI is acceptable for this patient. Discussed low protein/albumin. Has increased lean proteins, drinking protein drinks. History of ileus 01/02/2021 Assessment & Plan (08/24/2023 9:07 AM CDT): Stable. No new abdominla pain. Assessment & Plan (01/03/2021 10:12 AM HEAD OF VISUAL MERCHANDISING): Now w/RLQ ileostomy. Has appt today w/wound clinic at 1p at [facility] & w/Dr Areli Steward (surgeon) tomorrow 01/04/21 at 3[facility]. Ileostomy in place 01/02/2021 Assessment & Plan (01/03/2021 10:12 AM HEAD OF VISUAL MERCHANDISING): Now w/RLQ ileostomy. Has appt today w/wound clinic at 1[facility] at [facility] & w/Dr Areli Steward (surgeon) tomorrow 01/04/21 at 3[facility]. Able to change ostomy w/o difficulty. Feels confident in ability to care for ostomy. Stoma pink, moist, healthy. Denies any breakdown under appliance. Moderate episode of recurrent major depressive d isorder 03/12/2020 Assessment & Plan (08/24/2023 9:07 AM CDT): Stable on sertraline 100mg daily dosing and will monitor response. Assessment & Plan (06/22/2020 12:55 PM CDT): Sertraline 200mg daily. Reports good control of depression w/current regimen. No changes to be made at this time. Reviewed med Ses & scheduling. Reviewed red flags. Myeloradiculopathy 02/03/2020 Lumbar spinal stenosis 06/08/2018 Assessment & Plan (08/24/2023 9:06 AM CDT): Noted no sig chagne related to KERON and neurosurgery evaluation. Assessment & Plan (06/22/2020 9:30 AM CDT): Hydrocodone 5/325mg qid prn #60 refilled 05/22/20 Encouraged otc tylenol prn back pain. Discussed ice, gentle ROM, increased activity/core strengthening & other non pharm methods of pain relief. Denies bowel/bladder dysfunction. Denies cauda equina. Reviewed red flags. Assessment & Plan (09/07/2019 6:57 PM CDT): Hydrocodone refilled today. Encouraged otc tylenol/ibuprofen prn back pain. Discussed ice, gentle ROM, increased activity/core strengthening & other non pharm methods of pain relief. Denies bowel/bladder dysfunction. Denies cauda equina. Reviewed red flags. Assessment & Plan (07/31/2019 10:47 PM CDT): Hydrocodone last filled 06/21/19. Rare use.Uses medical marijuana for back/neck pain. Performs yoga exercises for neck/back pain. Encouraged otc tylenol/ibuprofen prn back pain. Discussed ice, gentle ROM, increased activity/core strengthening & other non pharm methods of pain relief. Denies bowel/bladder dysfunction. Denies cauda equina. Reviewed red flags. Assessment & Plan (01/17/2019 10:41 AM HEAD OF VISUAL MERCHANDISING): Encouraged otc tylenol/ibuprofen prn back pain. Discussed ice, gentle ROM, increased activity/core strengthening & other non pharm methods of pain relief. Denies bowel/bladder dysfunction. Denies cauda equina. Reviewed red flags. Continues to do yoga regularly. Uses medical marijuana that helps w/back/neck pain. Has not filled hydrocodone in approx 6 mos; refilled today. Takes very rarely. Assessment & Plan (06/09/2018 9:48 PM CDT): Encouraged otc tylenol/ibuprofen prn back pain. Discussed ice, gentle ROM, increased activity/core strengthening & other non pharm methods of pain relief. Hydrocodone refilled. Reviewed med SE & scheduling. Denies bowel/bladder dysfunction. Denies cauda equina. Reviewed red flags. Cervical stenosis of spine 06/08/2018 Assessment & Plan (06/22/2020 12:54 PM CDT): Hydrocodone 5/325mg qid prn #60 refilled 05/22/20 Encouraged otc tylenol prn back pain. Discussed ice, gentle ROM, increased activity/core strengthening & other non pharm methods of pain relief. Reviewed red flags. Assessment & Plan (09/07/2019 6:55 PM CDT): Hydrocodone refilled today. Rarely uses but notes over past few months that he's increased usage. Does use medical marijuana for back/neck pain. Does yoga Minimum 5 days/wk for neck/back pain. Assessment & Plan (07/31/2019 10:47 PM CDT): Hydrocodone last filled 06/21/19. Rare use.Uses medical marijuana for back/neck pain. Performs yoga exercises for neck/back pain. Assessment & Plan (01/17/2019 10:42 AM HEAD OF VISUAL MERCHANDISING): Encouraged otc tylenol/ibuprofen prn back pain. Discussed ice, gentle ROM, increased activity/core strengthening & other non pharm methods of pain relief. Denies bowel/bladder dysfunction. Denies cauda equina. Reviewed red flags. Continues to do yoga regularly. Uses medical marijuana that helps w/back/neck pain. Has not filled hydrocodone in approx 6 mos; refilled today. Takes very rarely. Assessment & Plan (06/09/2018 9:48 PM CDT): Encouraged otc tylenol/ibuprofen prn back pain. Discussed ice, gentle ROM, increased activity/core strengthening & other non pharm methods of pain relief. Hydrocodone refilled. Reviewed med SE & scheduling. Denies bowel/bladder dysfunction. Denies cauda equina. Reviewed red flags. Anxiety 06/08/2018 Assessment & Plan (09/07/2019 6:53 PM CDT): Reports good control of anxiety w/current regimen. No changes to be made at this time. Reviewed med Ses & scheduling. Reviewed red flags. Assessment & Plan (01/17/2019 10:45 AM HEAD OF VISUAL MERCHANDISING): Reports good control of anxiety w/current regimen. No changes to be made at this time. Reviewed med Ses & scheduling. Reviewed red flags. Assessment & Plan (07/15/2018 8:57 AM CDT): Doing well on current sertraline 200mg daily. To make f/u appt in 6 mos; sooner if decreased mood/effectiveness of sertraline. Reports good control of anxiety/agitation w/current regimen. No changes to be made at this time. Denies need for refills at this time. Reviewed med Ses & scheduling. Reviewed red flags. Assessment & Plan (06/08/2018 9:42 AM CDT): Increased sertraline from 150mg to 200mg. Will rtc in 5-6 weeks for re-eval. Personal history of malignan t neoplasm of rectum, rectosigmoid junction, and anus 06/08/2018 Assessment & Plan (06/22/2020 12:53 PM CDT): Managed by Dr Leland Sparrow at [facility]. Has been in remission after treatment. Assessment & Plan (09/07/2019 6:59 PM CDT): Followed by Dr Leland Sparrow at [facility]. [facility] 11/18/18. Last CRC screening=fall 2016. Assessment & Plan (07/31/2019 10:50 PM CDT): Followed by Dr Leland Sparrow at [facility]. [facility] 11/18/18. Last CRC screening=fall 2016. Chronic inflammatory demyelinating polyneuropath y 10/03/2016 Overview (01/07/2017): Overview: Dr Emerson @ [facility] Assessment & Plan (08/24/2023 9:06 AM CDT): COntinues to follow with Dr. Power, [facility] Movement disorder. Patient with combination of Rituxan and SC IG. No f/c, no N/V. Assessment & Plan (06/22/2020 9:28 AM CDT): Managed by Dr Power at [facility]. Has been doing the IVIG weekly at home. Assessment & Plan (09/07/2019 6:55 PM CDT): Sees Dr Power at [facility]. Next visit 12/2019. 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 Had telemedicine visit 06/20/19. Next office visit 12/2019. Assessment & Plan (01/17/2019 10:42 AM HEAD OF VISUAL MERCHANDISING): Follows w/Dr Power at [facility] for CIPD. Last appt 12/27/18. Has f/u scheduled 07/04/19. Assessment & Plan (06/09/2018 9:45 PM CDT): Follows with Dr Emerson at [facility] for CIDP treatment. Assessment & Plan (01/20/2018 12:24 PM HEAD OF VISUAL MERCHANDISING): CIDP followed by Dr. Emerson at [facility] Continues with Rituxan every 10 weeks -An acquired disorder of peripheral nerves and nerve roots -Neuropathies all have chronicity, demyelination, inflammation, or immune mediation in common Pes cavus 07/03/2016 Cervical radiculopathy 01/15/2016 Hypertension 10/31/2015 Assessment & Plan (08/24/2023 9:06 AM CDT): Reviewed combination therapy with good control of symptoms and will monitor response. Assessment & Plan (10/20/2022 8:48 AM CDT): Well controlled today. Continue chlorthalidone 25 mg daily and losartan 50 mg daily. Labs in July were stable. Assessment & Plan (01/03/2021 10:10 AM HEAD OF VISUAL MERCHANDISING): Losartan 50mg daily. Much improved BP. Will continue to check at home. HYLTON has resolved. Assessment & Plan (06/22/2020 12:50 PM CDT): The blood pressure is under good control. Ideally it should be under 130/80. Continue medications without adjustment. Continue efforts to eat well (4-5 fruits and veggies) daily and exercise for about 30 min nearly every day. Watch salt intake, keeping to less than 2000mg per day. Limit alcohol. Include strategies to cope with stress. Labs ordered today; will contact w/results once received. Assessment & Plan (09/07/2019 6:56 PM CDT): Does not check BP at home. The blood pressure is under good control. Ideally it should be under 130/80. Continue medications without adjustment. Continue efforts to eat well (4-5 fruits and veggies) daily and exercise for about 30 min nearly every day. Watch salt intake, keeping to less than 2000mg per day. Assessment & Plan (07/31/2019 10:45 PM CDT): The blood pressure is under good control. Ideally it should be under 130/80. Continue medications without adjustment. Continue efforts to eat well (4-5 fruits and veggies) daily and exercise for about 30 min nearly every day. Watch salt intake, keeping to less than 2000mg per day. Limit alcohol. Include strategies to cope with stress. Labs ordered today; will contact w/results once received. Assessment & Plan (01/17/2019 10:44 AM HEAD OF VISUAL MERCHANDISING): The blood pressure is under good control. Ideally it should be under 130/80. Continue medications without adjustment. Continue efforts to eat well (4-5 fruits and veggies) daily and exercise for about 30 min nearly every day. Watch salt intake, keeping to less than 2000mg per day. Limit alcohol. Include strategies to cope with stress. Assessment & Plan (06/09/2018 9:47 PM CDT): Hypertension is improving with treatment. Continue current treatment regimen. Blood pressure will be reassessed at next regularly scheduled appointment.. ACEI cough resolved. Good BP control with current losartan dosing. To randomly check BP. Reviewed BP parameters Assessment & Plan (01/20/2018 12:59 PM HEAD OF VISUAL MERCHANDISING): Hypertension is unchanged. Medication changes per orders. Blood pressure will be reassessed in 4 weeks. Changing Lisinopril to Losartan related to patient's persistent Cough. Talked to patient about ACEI cough and he should see a difference within the week if the cough seems to improve with stopping the Lisinopril. Will send a message through [employer] to Dr. Gore with the change Pain of foot 10/18/2015 Disorder of intervertebral disc 07/09/2013 Overview (05/30/2016): DISC DIS NEC/NOS-LUMBAR Multiple-type hyperlipidemia 07/09/2013 Overview (05/30/2016): MIXED HYPERLIPIDEMIA Assessment & Plan (08/24/2023 9:05 AM CDT): Stable on statin medication, no new arthralgias/myalgias. Assessment & Plan (10/20/2022 8:49 AM CDT): Try glycerides mildly elevated on FLP in July but overall well controlled. Continue Atorvastatin 40 mg daily. Discussed importance of heart healthy diet. He should continue regular exercise. Assessment & Plan (06/22/2020 12:53 PM CDT): 06/24/18 JG=021 HDL=54 HL=441 LDL=97 TC/HDL=3.2 03/22/19 JZ=325 HDL=51 RH=362 LDL=96 TC/HDL=3.3 09/05/19 NV=339 HDL=52 LY=454 LDL=88 TC/HDL=3.1 Will go to lab today for repeat lipid panel. Atorvastatin 40mg w/o SE. We will check labs and make adjustments to medications as needed. Patient should focus on limiting bad fats in the diet and using exercise as a way to improve the lipid status. Secondary prevention. Reviewed medications. Lipid panel ordered; will call w/results when rec'd. Denies any statin Ses. Reviewed diet/exercise recommendations. Reviewed red flags. Assessment & Plan (09/07/2019 6:58 PM CDT): 06/24/18 RW=474 HDL=54 YR=674 LDL=97 TC/HDL=3.2 03/22/19 GL=314 HDL=51 SE=507 LDL=96 TC/HDL=3.3 09/05/19 VA=596 HDL=52 JO=997 LDL=88 TC/HDL=3.1 Copy of results given to Mr Mariscal. We will check labs and make adjustments to medications as needed. Patient should focus on limiting bad fats in the diet and using exercise as a way to improve the lipid status. Secondary prevention. Reviewed medications. Denies any statin Ses. Reviewed diet/exercise recommendations. Reviewed red flags. Assessment & Plan (07/31/2019 10:42 PM CDT): Copy of results given as well as written explanations. Patient should focus on limiting bad fats in the diet and using exercise as a way to improve the lipid status. Secondary prevention. Reviewed medications. Lipid panel ordered; will call w/results when rec'd. Denies any statin Ses. Reviewed diet/exercise recommendations. Reviewed red flags. Assessment & Plan (01/17/2019 10:44 AM HEAD OF VISUAL MERCHANDISING): We will check labs and make adjustments to medications as needed. Patient should focus on limiting bad fats in the diet and using exercise as a way to improve the lipid status. Secondary prevention. Reviewed medications. Lipid panel ordered; will call w/results when rec'd. Denies any statin Ses. Reviewed diet/exercise recommendations. Reviewed red flags. Assessment & Plan (06/09/2018 9:44 PM CDT): labs ordered; will contact w/results once rec'd.. will continue current atorvastatin. Lipids will be reassessed at this time; labs ordered. Secondary prevention. Reviewed medications. Denies any statin Ses. Reviewed diet/exercise recommendations. Reviewed red flags. Colonic adenoma 07/09/2011 Overview (11/21/2016): Overview: Colonoscopy 06/2012: 2 small adenomas. 02/2009: Small cecal polyp. 2006: [place]-rectal/anal anastomosis. Few proximal colonic diverticuli. Resolved Problems Problem Noted Date Diagnosed Date Resolved Date Protein-calorie malnutrition, severe 12/06/2020 08/24/2023 BMI 25.0-25.9,adult 09/05/2019 01/04/20 21 Assessment & Plan (06/22/2020 12:54 PM CDT): Does yoga 4-5x/wk for exercise. Discussed healthy diet and importance of regular physical activity. BMI is acceptable for this patient. Assessment & Plan (09/05/2019 10:11 AM CDT): Discussed healthy diet and importance of regular physical activity. BMI is acceptable for this patient. Need for pneumococcal vaccination 09/05/2019 06/22/2020 Assessment & Plan (09/05/2019 10:21 AM CDT): Pneumovax 23 given today. Discussed possible tenderness/redness at injection site. Encounter for Medicare annual wellness exam 09/04/2019 06/22/2020 Medicare annual wellness visit, subsequent 07/31/2019 06/22/2020 Assessment & Plan (09/07/2019 6:58 PM CDT): 1. Eat a healthy diet: focus on lean meats and proteins, more fruits, vegetables and whole grains and low in sugars and fats. Limit red meat and avoid processed meat. 2. Maintain a healthy weight; avoid being overweight. Aim for a normal body mass index (BMI) of 18.5-24.9. Help learning to eat healthier, we can set up appointment with oncology coordinator/clinical engineering manager. 3. Have an active lifestyle, strive for 30 minutes of moderate exercise 5 times a week and strength or resistance training at least twice a week. 4. Use broad-spectrum (UVA+UVB) sunscreen with SPF 30 or greater, is water resistant, limit time spent in the sun (10 am-4pm), wear hat, wear UV protective clothing, wear sunglasses. Never use a tanning bed. Skin that was irradiated may be more sensitive over your lifetime. 5. Do not smoke or chew tobacco. 6. Limit alcohol intake, 2 drinks per day for a man. Assessment & Plan (07/31/2019 10:51 PM CDT): 1. Eat a healthy diet: focus on lean meats and proteins, more fruits, vegetables and whole grains and low in sugars and fats. Limit red meat and avoid processed meat. 2. Maintain a healthy weight; avoid being overweight. Aim for a normal body mass index (BMI) of 18.5-24.9. Help learning to eat healthier, we can set up appointment with oncology coordinator/clinical engineering manager. 3. Have an active lifestyle, strive for 30 minutes of moderate exercise 5 times a week and strength or resistance training at least twice a week. 4. Use broad-spectrum (UVA+UVB) sunscreen with SPF 30 or greater, is water resistant, limit time spent in the sun (10 am-4pm), wear hat, wear UV protective clothing, wear sunglasses. Never use a tanning bed. Skin that was irradiated may be more sensitive over your lifetime. 5. Do not smoke or chew tobacco; participate in a smoking cessation program. 6. Limit alcohol intake, 2 drinks per day for a man. Need for influenza vaccination 01/17/2019 07/31/2019 Assessment & Plan (01/17/2019 10:44 AM HEAD OF VISUAL MERCHANDISING): Flu vaccine given today. Discussed possible tenderness/redness at injection site. Chronic otitis media of righ t ear with effusion 01/13/2019 07/31/2019 Assessment & Plan (03/22/2019 11:13 AM HEAD OF VISUAL MERCHANDISING): Middle ear fluid resolved today. Call if symptoms return May stop with Flonase or decrease to 1 spray into each nostril daily and increase if needed Consider adding antihistamine in the Spring Assessment & Plan (01/13/2019 9:44 AM HEAD OF VISUAL MERCHANDISING): Continue Claritin and Flonase 2 sprays into each nostril while looking down over the sink, do not sniff in or blow nose after use daily Start Cefdinir with a meal daily for 14 days Follow up in one month with a hearing test Probiotic (Culturelle) at a different meal 4 hours in between Need for pneumococcal vaccination 06/09/2018 07/31/2019 Assessment & Plan (06/09/2018 9:49 PM CDT): prevnar 13 vaccine given today. Discussed possible tenderness/redness at injection site. BMI 26.0-26.9,adult 06/09/2018 09/05/19 20 Assessment & Plan (01/17/2019 10:39 AM HEAD OF VISUAL MERCHANDISING): Continues to do yoga. Discussed healthy diet and importance of regular physical activity. BMI is acceptable for this patient. Assessment & Plan (07/15/2018 8:55 AM CDT): Does yoga 4x/wk. Has noted improved back pain after starting these exercises. BMI is acceptable for this patient. Assessment & Plan (06/09/2018 9:49 PM CDT): BMI is acceptable for this patient. Difficulty with exercise d/t lumbar/cervical spine stenosis. Personal history of colon cancer 06/08/2018 06/22/2020 Assessment & Plan (09/07/2019 6:59 PM CDT): Followed by Dr Leland Sparrow at [facility]. [facility] 11/18/18. Last CRC screening=fall 2016. Assessment & Plan (07/31/2019 10:50 PM CDT): Followed by Dr Leland Sparrow at [facility]. [facility] 11/18/18. Last CRC screening=fall 2016. Therapeutic drug monitoring 11/09/2017 07/31/2019 Peripheral demyelinating neuropathy 01/29/2017 06/08/2018 Gastrointestinal problem 11/21/2016 Overview (11/21/2016): Overview: Formatting of this note may be different from the original. 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 No changes to be made at this time. Reviewed med Ses & scheduling. Reviewed red flags. Assessment & Plan (07/31/2019 10:37 PM CDT): Reports good control of depression w/current regimen. No changes to be made at this time. Reviewed med Ses & scheduling. Reviewed red flags. Assessment & Plan (01/17/2019 10:43 AM HEAD OF VISUAL MERCHANDISING): Reports good control of depression w/current regimen. No changes to be made at this time. Reviewed med Ses & scheduling. Reviewed red flags. Assessment & Plan (06/09/2018 9:42 PM CDT): Psychological condition is improving with treatment. Continue current treatment regimen. Psychological condition will be reassessed 6 weeks. Sertraline increased for anxiety issues. Had been on 150mg daily; increased to 200mg daily. Carcinoma in situ of colon 07/09/2013 0 06/08/2018 Overview (05/30/2016): CA IN SITU COLON Hx SBO 02/12/2009 06/09/2018 Overview (11/21/2016): Overview: Ex-lap SBO 2001. Dr. Zamudio. Colon cancer 11/08/2008 06/08/2018 Overview (11/21/2016): Overview: Dx: 02/1999. S/P low anterior resection. Rectal cancer 11/08/2008 06/08/2018 Overview (01/07/2017): Overview: Dx: 02/1999. S/P low anterior resection. Encounters Date Type Department Care Team Description 07/22/2024 Orders Only [facility]cle [address] [facility] 6[address] [place] [address] [place] [address] Tyler Garrison RN Chronic inflammatory demyelinating polyneuropathy (HCC) (Primary Dx) 05/27/2024 Telephone [facility] [address] [address] Mp Barnes MD Appointment Request 05/26/2024 Telephone [facility] [address] [address] Mp Barnes MD from Last 3 Months Immunizations Immunization Administration Dates Next Due Influenza, Quad, Adjuvantate d, Intramuscular 11/26/2019 Influenza, Quadrivalent, Hig h Dose, Preservative Free, Intrr 12/13/2020,10/24/2020 Influenza, Quadrivalent, Spl it, Preservative Free, Intramuscular 12/17/2017,10/29/2016 Influenza, Split 03/11/2013 Influenza, Trivalent, High D ose, Split, Preservative Free, Intramuscular 01/17/2019 Influenza, Trivalent, Preser vative Free, Intramuscular 03/11/2013 Influenza, Unspecified 02/09/2023,2022(Deferred: Patient Refused),10/24/2021(Deferred: Patient Refused),12/13/2020,02/24/2016(Deferre d: Patient Refused),11/20/2015 Moderna SARS-CoV-2 Monovalen t Vaccination (12+ YRS) 05/06/2020,04/08/2020 Pneumococcal Conjugate PCV 13 06/08/2018 Pneumococcal Polysaccharide PPV23 09/05/2019 Tdap 02/27/2021 Surgical History Surgery Date Site/Laterality Comments CARPAL TUNNEL RELEASE Right Carpal tunnel release ANKLE FUSION 10/25/2015 - 11/23/2015 Left NECK SURGERY 01/24/2016 - 02/23/2016 LUMBAR SPINE SURGERY COLON SURGERY Medical History Medical History Date Comments Hx Other Medical Back Pain; Comm ents: JNS 04/26/2014 - Malignant neoplasm of unknow n origin (HCC) 1999 Cancer, unknown; Comments: Sadaf SALINAS 04/26/2014 - Hx Other Medical L5 Back 987; Comments: JNS 04/26/2014 - Hx Other Medical Neck 1992; Comm ents: JNS 04/26/2014 - Malignant neoplasm of colon (HCC) Cancer, colon; Comments: SANTIAGO 08/11/2014 - Hyperlipidemia Hyperlipidemia; Comments: SANTIAGO 08/11/2014 - Depression Depression 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 S/P low anterior resection. 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 S/P low anterior resection. Pain in shoulder 01/15/2016 Arthralgia of ankle 10/18/2015 Dyspnea on exertion 10/31/2015 Weakness of shoulder 10/31/2015 Disorder of rotator cuff 01/15/2016 Ankle pain 03/20/2016 Gastrointestinal problem 11/21/2016 Overvie w: Formatting of this note may be different from the original. Procedures Colonoscopy, 06/03/10, PEB Colonoscopy, 02/12/09, PEB Colonoscopy 2006, 11/08/08, PEB Colonoscopy, 11/08/08, PEB Hx SBO 02/12/2009 Overview: Ex-lap SBO 2001. Dr. Zamudio. Low back pain 09/11/2015 Low back pain ra diating to both legs Cervicalgia 01/15/2016 Hammer toe 07/03/2016 Family History Medical History Relation Name Comments Cancer Brother Hypertension Brother Heart attack Father Heart disease Father Hypertension Father Stroke Father Cancer Mother Hypertension Mother Other Mother DDD lumbar spin e.; Ovarian cancer Mother ovarian cance r; Cancer Other 1 Family history of Cancer, unknown; Diabetes Other 2 Family history of Diabetes mellitus; Hypertension Other 3 Family history of Hypertension; Stroke Other 4 Family history of Stroke; Heart disease Other 5 Family history of Heart problems; Cancer Sister Hodgkin's lymphoma Sister Relation Name Status Comments Brother Father (Age 67) Mother (Age 74) Other 1 Other 2 Other 3 Other 4 Other 5 Sister Alive Social History Tobacco Use Types Packs/Day Years Used Date Smoking Tobacco: Former Cigarettes 0.5 10 1 968 1977 Smokeless Tobacco: Never Tobacco Cessation:Counseling Given: Not Answered Comments:smokes medical marijuana Alcohol Use Standard Drinks/Week Comments Yes 0 (1 standard drink = 0.6 oz pur e alcohol) occasionally Social Connection and Isolat ion Panel [NHANES] Answer Date Recorded In a typical week, how many times do you talk on the phone with family, friends, or neighbors? More than three times a week 01/01/2021 How often do you get togethe r with friends or relatives? More than three times a week 01/01/2021 How often do you attend chur ch or baptism services? Never 01/01/2021 Do you belong to any clubs o r organizations such as mu-ism groups, unions, fraternal or athletic groups, or school groups? No 01/01/2021 How often do you attend meet ings of the clubs or organizations you belong to? Never 01/01/2021 Are you , , di vorced, , never , or living with a partner? 01/01/2021 AUDIT-C Answer Date Recorded Q1: How often do you have a drink containing alc ohol? 2-3 times a week 07/08/2021 Q2: How many drinks containi ng alcohol do you have on a typical day when you are drinking? 1 or 2 07/08/2021 Q3: How often do you have si x or more drinks on one occasion? Never 07/08/2021 Overall Financial Resource Strain (CARDIA) Answe r Date Recorded How hard is it for you to pa y for the very basics like food, housing, medical care, and heating? Not very hard 01/01/2021 PHQ-2 Answer Date Recorded PHQ-2 Total Score (If total score is 3 or more points, staff should administer the PHQ-9) 0 08/24/2023 Hunger Vital Sign Answer Date Recorded Within the past 12 months, y ou worried that your food would run out before you got the money to buy more. Never true 12/15/19 24 Within the past 12 months, t he food you bought just didn't last and you didn't have money to get more. Never true 12/15/2023 PRAPARE - Transportation Answer Date Re corded In the past 12 months, has l ack of transportation kept you from medical appointments or from getting medications? No 10/2020 In the past 12 months, has l ack of transportation kept you from meetings, work, or from getting things needed for daily living? No 01/01/2021 Housing Stability Vital Sign Answer Jones e Recorded In the last 12 months, was t here a time when you were not able to pay the mortgage or rent on time? No 01/01/2021 In the last 12 months, how many places have you lived? 1 01/01/2021 In the last 12 months, was t here a time when you did not have a steady place to sleep or slept in a mcfp (including now)? No 01/01/2021 Personal Safety Answer Date Recorded Have you ever been in or are you currently in a harmful physical or emotional relationship or is someone making you feel afraid or unsafe? Denies 12/15/2023 Sex and Gender Information Value Date Recorded Sex Assigned at Not on file Legal Sex Male 11:50 PM HEAD OF VISUAL MERCHANDISING Gender Identity Not on file Sexual Orientation Not on file Obstetrics History Last Filed Vital Signs Vital Sign Reading Time Taken Comments Blood Pressure 165/72 02/21/2024 5:11 PM HEAD OF VISUAL MERCHANDISING Pulse 65 02/21/2024 5:11 PM HEAD OF VISUAL MERCHANDISING Temperature 36.7 C (98.1 F) 02/21/2024 5:11 PM HEAD OF VISUAL MERCHANDISING Respiratory Rate 18 02/21/2024 5:11 PM HEAD OF VISUAL MERCHANDISING Oxygen Saturation 99% 02/21/2024 5:11 PM HEAD OF VISUAL MERCHANDISING Inhaled Oxygen Concentration - - Weight 101.4 kg (223 lb 8 oz) 02/21/2024 1:27 PM HEAD OF VISUAL MERCHANDISING Height 193 cm (6' 4) 02/08/2024 7:38 AM HEAD OF VISUAL MERCHANDISING Body Mass Index 27.21 02/08/2024 7:38 AM HEAD OF VISUAL MERCHANDISING Plan of Treatment Health Maintenance Due Date Last Done Comments Hepatitis B Screening 1968 Zoster Vaccine (1 of 2) 1969 Covid-19 Vaccine (3 - Modern a risk series) 06/03/2020 05/06/2020, 04/08/2020 Depression Screening 08/23/2024 08/24/2023, 08/20/2022, 08/16/2021, Additional history exists Fall Risk Assessment 08/23/2024 08/24/2023, 08/20/2022, 08/16/2021, Additional history exists Well Visit 65+ 08/23/2024 08/24/2023, 07/25, 08/16/2021, Additional history exists Influenza Vaccine (Season Ended) 2024 02/09/2023, 12/13/2020, 12/13/2020, Additional history exists DTaP/Tdap/Td Vaccine (2 - Td or Tdap) 02/27/2031 02/27/2021 Hepatitis C Screening Completed 07/03/2016 Pneumococcal vaccine 65+ Completed 09/05/2019, 05/24 Colon Cancer Screening-CT Colonography Discontinued 11/26/2020, 10/24/2016 Colon Cancer Screening-Colonoscopy Discontinued 11/26/2020, 10/24/2016 Colon Cancer Screening-DNA Stool Discontinued 11/27/19, 10/24/2016 Colon Cancer Screening-FIT Discontinued 11/26/2020, Colon Cancer Screening-FOBT Discontinued 11/26/2020, 0 10/24/2016 Colon Cancer Screening-Sigmoidoscopy Discontinued 11/26/2020, 10/24/2016 Colorectal Cancer Screening Discontinued Abdominal Aortic Aneurysm (A AA) Screen Completed 12/12/2020 Goals Goal Patient Goal Type Associated Problems Recent Progress Patient-Stated? Author ACO CC Goal - Level of ADL/IADL assistance will meet patient's needs ACO Care Management No change(07/08 1:41 PM CDT) No Lilia Martínez, RN Note: Problem: Inadequate assistance to manage ADL's/IADL's Interventions: - Assess current level of functioning and needs with patient/family. - Assess appropriateness for Home Health. Contact PCP office to start referral process if skilled need is present. - Encourage independent ADL's as appropriate. Ensure patient has the appropriate tools at home to be as independent as possible. - Refer to SW if appropriate and patient is agreeable. Procedures Procedure Name Priority Date/Time Associated Diagnosis Comments COLONOSCOPY Routine 11/26/2020 HEPATITIS C ANTIBODY Routine Gen Lab 07/03/2016 10:54 AM CDT from Last 3 Months or Most Recently Relevant to Health Maintenance Results * Colonoscopy (11/26/2020) Anatomical Region Laterality Modality Other us Historical Provider ENDOSCOPY PROCEDURES Edit ed Result - Final * Hepatitis C antibody (07/03/2016 10:54 AM CDT) Hep C Ab Nonreactive Nonreactive SARAI FERGUSON Comment: Interpretive Data Positive results should be confirmed by a molecular method. If positive, a second separately collected sample should be submitted for Hepatitis C Virus (HCV) RNA Detection and Quantitation by Real-Time Reverse Medical Diagnostic Radiographer-PCR (RT-PCR). Current interpretive data was last revised on 2016. Blood specimen (specimen) 07/03/2016 10:54 AM CDT 07/03/2016 11:59 AM CDT Shyam Power MD PhD LAB MICROB IOLOGY - GENERAL ORDERABLES Edited Result - Final [facility] Department [place] [address] from Last 3 Months or Most Recently Relevant to Health Maintenance Insurance [facility] MEDICARE ADVANTAGE Care Teams Aerial Gunner Superintendent Relationship Specialty Start Date End Date Mp Barnes MD [address] [place] [address] PCP - General 04/08/16 Shyam Power MD PhD [address] [place] [address] Referring Physician Neuromuscular Medicine 09/08/17
--- OUTSIDE RECORDS SUMMARY | 2024-07-23 08:04 | XMS_ITS | Referral Summary ---
Author Organization [facility] Address [address] [place] [address] Care Team Providers Care Manager Nc Name Role Phone Mp Barnes MD Primary Care Provider [phone] Shyam Power MD PhD Unavailable + Encounters Date Type Department Care Team Description 07/22/2024 Orders Only [facility] Neuro Muscle [address] 6[address] [place] [address] [place] [address] Tyler Garrison, sales representative inflammatory demyelinating polyneuropathy (HCC) (Primary Dx) 05/27/2024 Telephone [facility] [address] [address] Mp Barnes MD Appointment Request 05/26/2024 Telephone [facility] [address] [address] Mp Barnes MD from Last 3 Months Allergies No known active allergies Medications nitroglycerin [...] polyneuropath y 05/07/2023 PVC (premature ventricular contraction) 08/28/20 23 Assessment & Plan (10/20/2022 11:24 AM [...] 01/03/2021 Assessment & Plan (01/03/2021 10:11 AM BLOCK GREASER): Discussed healthy diet and importance of regular physical activity. BMI is acceptable for this patient. Discussed low protein/albumin. Has increased lean proteins, drinking protein drinks. History of ileus 01/02/2021 Assessment & Plan (08/24/2023 9:07 AM CDT): Stable. No new abdominla pain. Assessment & Plan (01/03/2021 10:12 AM BLOCK GREASER): Now w/RLQ ileostomy. Has appt today w/wound clinic at at [facility] & w/Dr Areli Steward (surgeon) tomorrow 01/04/21 at [address]p. I[address]ostomy in place 01/02/2021 Assessment & Plan (01/03/2021 10:12 AM BLOCK GREASER): Now w/RLQ ileostomy. Has appt today w/wound clinic at at [facility] & w/Dr Areli Steward (surgeon) [...] flags. Assessment & Plan (01/17/2019 10:41 AM BLOCK GREASER): Encouraged otc tylenol/ibuprofen prn back pain. Discussed [...] pain. Assessment & Plan (01/17/2019 10:42 AM BLOCK GREASER): Encouraged otc tylenol/ibuprofen prn back pain. Discussed [...] flags. Assessment & Plan (01/17/2019 10:45 AM BLOCK GREASER): Reports good control of anxiety w/current regimen. [...] CDT): Managed by Dr Leland Sparrow at [facility]. Has been in remission after treatment. Assessment & Plan (09/07/2019 6:59 PM CDT): Followed by Dr Leland Sparrow at [facility]. RAJ 11/18/18. Last CRC screening=fall 2016. Assessment & Plan (07/31/2019 10:50 PM CDT): Followed by Dr Leland Sparrow at [facility]. RAJ 11/18/18. Last CRC screening=fall 2016. 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 Power, [facility] Movement disorder. Patient with combination of Rituxan and SC IG. No f/c, no N/V. Assessment & Plan (06/22/2020 9:28 AM CDT): Managed by Dr Power at [facility]. Has been doing the IVIG weekly at home. Assessment & Plan (09/07/2019 6:55 PM CDT): Sees Dr Power at [facility]. Next visit 12/2019. 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 Had telemedicine visit 06/20/19. Next office visit 12/2019. 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 Last appt 12/27/18. Has f/u scheduled 07/04/19. Assessment & Plan (06/09/2018 9:45 PM CDT): Follows with Dr Emerson at [facility] for CIDP treatment. Assessment & Plan (01/20/2018 12:24 PM BLOCK GREASER): CIDP followed by Dr. Emerson at [facility] [...] stable. Assessment & Plan (01/03/2021 10:10 AM BLOCK GREASER): Losartan 50mg daily. Much improved BP. Will [...] received. Assessment & Plan (01/17/2019 10:44 AM BLOCK GREASER): The blood pressure is under good control. [...] parameters Assessment & Plan (01/20/2018 12:59 PM BLOCK GREASER): Hypertension is unchanged. Medication changes per orders. Blood pressure will be reassessed in 4 weeks. Changing Lisinopril to Losartan related to patient's persistent Cough. Talked to patient about ACEI cough and he should see a difference within the week if the cough seems to improve with stopping the Lisinopril. Will send a message through [employer] to Dr. Gore with the change Pain [...] & Plan (06/22/2020 12:53 PM CDT): 06/24/18 FH=401 HDL=54 HP=357 LDL=97 TC/HDL=3.2 03/22/19 ZS=540 HDL=51 XL=764 LDL=96 TC/HDL=3.3 09/05/19 UE=315 HDL=52 JN=142 LDL=88 TC/HDL=3.1 Will go to lab today [...] & Plan (09/07/2019 6:58 PM CDT): 06/24/18 ZY=636 HDL=54 OM=670 LDL=97 TC/HDL=3.2 03/22/19 RM=746 HDL=51 HM=396 LDL=96 TC/HDL=3.3 09/05/19 VC=072 HDL=52 ZN=544 LDL=88 TC/HDL=3.1 Copy of results given to [...] flags. Assessment & Plan (01/17/2019 10:44 AM BLOCK GREASER): We will check labs and make adjustments [...] small adenomas. 02/2009: Small cecal polyp. 2006: [place]-rectal/anal anastomosis. Few proximal colonic diverticuli. Resolved Problems [...] healthier, we can set up appointment with armature tester/generator mechanic. 3. Have an active lifestyle, strive for [...] healthier, we can set up appointment with armature tester/generator mechanic. 3. Have an active lifestyle, strive for [...] 07/31/2019 Assessment & Plan (01/17/2019 10:44 AM BLOCK GREASER): Flu vaccine given today. Discussed possible tenderness/redness at injection site. Chronic otitis media of righ t ear with effusion 01/13/2019 07/31/2019 Assessment & Plan (03/22/2019 11:13 AM BLOCK GREASER): Middle ear fluid resolved today. Call if symptoms return May stop with Flonase or decrease to 1 spray into each nostril daily and increase if needed Consider adding antihistamine in the Spring Assessment & Plan (01/13/2019 9:44 AM BLOCK GREASER): Continue Claritin and Flonase 2 sprays into [...] 20 Assessment & Plan (01/17/2019 10:39 AM BLOCK GREASER): Continues to do yoga. Discussed healthy diet [...] CDT): Followed by Dr Leland Sparrow at [facility]. [facility] 11/18/18. Last CRC screening=fall 2016. Assessment & Plan (07/31/2019 10:50 PM CDT): Followed by Dr Leland Sparrow at [facility]. [facility] 11/18/18. Last CRC screening=fall 2016. Therapeutic drug monitoring 11/09/2017 07/31/2019 Peripheral demyelinating neuropathy 01/29/2017 06/08/2018 Gastrointestinal problem 11/21/2016 Overview (11/21/2016): Overview: Formatting of this note may be different from the original. Procedures Colonoscopy, 06/03/10, PEB Colonoscopy, 02/12/09, PEB Colonoscopy 2007, 11/08/08, PEB Colonoscopy, 11/08/08, PEB Malignant neoplasm [...] flags. Assessment & Plan (01/17/2019 10:43 AM BLOCK GREASER): Reports good control of depression w/current regimen. [...] Overview: Dx: 02/1999. S/P low anterior resection. Immunizations Immunization Administration Dates Next Due Influenza, [...] 06/08/2018 Pneumococcal Polysaccharide PPV23 09/05/2019 Tdap 02/27/2021 Social History Tobacco Use Types Packs/Day Years Used Date Smoking Tobacco: Former Cigarettes 0.5 10 1 388 - 4524 Smokeless Tobacco: Never Tobacco Cessation:Counseling Given: Not [...] often do you attend chur ch or episcopal services? Never 01/01/2021 Do you belong to any clubs o r organizations such as mormon groups, unions, fraternal or athletic groups, or [...] place to sleep or slept in a snf (including now)? No 01/01/2021 Personal Safety Answer Date Recorded Have you ever been in or are you currently in a harmful physical or emotional relationship or is someone making you feel afraid or unsafe? Denies 12/15/2023 Sex and Gender Information Value Date Recorded Sex Assigned at Not on file Legal Sex Male 11:50 PM BLOCK GREASER Gender Identity Not on file Sexual Orientation Not on file Last Filed Vital Signs Vital Sign Reading Time Taken Comments Blood Pressure 165/72 02/21/2024 5:11 PM BLOCK GREASER Pulse 65 02/21/2024 5:11 PM BLOCK GREASER Temperature 36.7 C (98.1 F) 02/21/2024 5:11 PM BLOCK GREASER Respiratory Rate 18 02/21/2024 5:11 PM BLOCK GREASER Oxygen Saturation 99% 02/21/2024 5:11 PM BLOCK GREASER Inhaled Oxygen Concentration - - Weight 101.4 kg (223 lb 8 oz) 02/21/2024 1:27 PM BLOCK GREASER Height 193 cm (6' 4) 02/08/2024 7:38 AM BLOCK GREASER Body Mass Index 27.21 02/08/2024 7:38 AM BLOCK GREASER Plan of Treatment Not on file Goals Goal Patient Goal Type Associated Problems [...] RNA Detection and Quantitation by Real-Time Reverse Floor Worker Transfer [place]-PCR (RT-PCR). Current interpretive data was last revised on 2016. Blood specimen (specimen) 07/03/2016 10:54 AM CDT 07/03/2016 11:59 AM CDT Shyam Power MD PhD LAB MICROB IOLOGY - GENERAL ORDERABLES Edited Result - Final [facility] Department [place] [address] from Last 3 Months or Most Recently Relevant to Health Maintenance Insurance [facility] MEDICARE ADVANTAGE [place] [id number] Care Teams Manager Nc Relationship Specialty Start Date End Date Mp Barnes MD [address] [place] [address] PCP - General 04/08/16 Shyam Power MD PhD [address] [place] [address] Referring Physician Neuromuscular Medicine 09/08/17
--- OUTSIDE RECORDS SUMMARY | 2024-07-23 08:04 | XMS_ITS | Continuity of Care Document ---
Author Name [facility] Organization [facility] Care Team Providers Care Blending Tank Tender Helper Name Role Phone [facility] Unavailable Unavailable Immunizations Combined list of available immunizations from the Department of Defense and Veterans Affairs facilities. Immunization Series Date Given Administered By Site Reaction Lot Number CVX Code Drug Carding Machine Operator Status Comments Source COVID-19 (MODERNA), MRNA, LNP-S, PF, 100 MCG/0.5 ML DOSE 2 2020 207 complet ed MOD; [id number]; 1 [facility] COVID-19 (MODERNA), MRNA, LNP-S, PF, 100 MCG/0.5 ML DOSE 1 2020 207 complet ed MOD; [id number]; 1 [facility] Encounters Combined list of: 1) Encounters from Department of Veterans Affairs facilities going backup to the last 18 months, not all VA inpatient encounters are included; 2) Encounters from the Department of Defense facilities going backup to 280 months. Location Location Details Encounter Type Encounter Number Reason For Visit Attending Provider ADM Date DC Date Status Disposition Source [facility] Outpatient Encounter [id number] 12/29 [facility]
--- OUTSIDE RECORDS SUMMARY | 2024-07-23 08:04 | XMS_ITS ---
Author Organization [facility] Address [address] [place] [address] Care Team Providers Care Manufacturing Engineering Director Name Role Phone Mp Barnes MD Primary Care Provider [phone] Shyam Power MD PhD Unavailable + Active Problems Problem Noted Date Diagnosed Date [...] 01/03/2021 Assessment & Plan (01/03/2021 10:11 AM PIPE COVERER HELPER): Discussed healthy diet and importance of regular physical activity. BMI is acceptable for this patient. Discussed low protein/albumin. Has increased lean proteins, drinking protein drinks. History of ileus 01/02/2021 Assessment & Plan (08/24/2023 9:07 AM CDT): Stable. No new abdominla pain. Assessment & Plan (01/03/2021 10:12 AM PIPE COVERER HELPER): Now w/RLQ ileostomy. Has appt today w/wound clinic at 1p at [facility] & w/Dr Areli Steward (surgeon) tomorrow 01/04/21 at 3[facility]. Ileostomy in place 01/02/2021 Assessment & Plan (01/03/2021 10:12 AM PIPE COVERER HELPER): Now w/RLQ ileostomy. Has appt today w/wound clinic at 1p at [facility] & w/Dr Areli Steward (surgeon) tomorrow 01/04/21 [...] flags. Assessment & Plan (01/17/2019 10:41 AM PIPE COVERER HELPER): Encouraged otc tylenol/ibuprofen prn back pain. Discussed [...] pain. Assessment & Plan (01/17/2019 10:42 AM PIPE COVERER HELPER): Encouraged otc tylenol/ibuprofen prn back pain. Discussed [...] flags. Assessment & Plan (01/17/2019 10:45 AM PIPE COVERER HELPER): Reports good control of anxiety w/current regimen. [...] CDT): Managed by Dr Leland Sparrow at [facility]. Has been in remission after treatment. Assessment & Plan (09/07/2019 6:59 PM CDT): Followed by Dr Leland Sparrow at [facility]. [facility] 11/18/18. Last CRC screening=fall 2016. Assessment & Plan (07/31/2019 10:50 PM CDT): Followed by Dr Leland Sparrow at [facility]. [facility] 11/18/18. Last CRC screening=fall 2016. 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 Power, [facility] Movement disorder. Patient with combination of Rituxan and SC IG. No f/c, no N/V. Assessment & Plan (06/22/2020 9:28 AM CDT): Managed by Dr oPwer at [facility]. Has been doing the IVIG weekly at home. Assessment & Plan (09/07/2019 6:55 PM CDT): Sees Dr Power at [facility]. Next visit 12/2019. 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 Had telemedicine visit 06/20/19. Next office visit 12/2019. Assessment & Plan (01/17/2019 10:42 AM PIPE COVERER HELPER): Follows w/Dr Power at [facility] for CIPD. Last appt 12/27/18. Has f/u scheduled 07/04/19. Assessment & Plan (06/09/2018 9:45 PM CDT): Follows with Dr Emerson at [facility] for CIDP treatment. Assessment & Plan (01/20/2018 12:24 PM PIPE COVERER HELPER): CIDP followed by Dr. Emerson at [facility] Continues with Rituxan every 10 weeks -An [...] stable. Assessment & Plan (01/03/2021 10:10 AM PIPE COVERER HELPER): Losartan 50mg daily. Much improved BP. Will [...] received. Assessment & Plan (01/17/2019 10:44 AM PIPE COVERER HELPER): The blood pressure is under good control. [...] parameters Assessment & Plan (01/20/2018 12:59 PM PIPE COVERER HELPER): Hypertension is unchanged. Medication changes per orders. Blood pressure will be reassessed in 4 weeks. Changing Lisinopril to Losartan related to patient's persistent Cough. Talked to patient about ACEI cough and he should see a difference within the week if the cough seems to improve with stopping the Lisinopril. Will send a message through [place] to Dr. Gore with the change Pain [...] & Plan (06/22/2020 12:53 PM CDT): 06/24/18 HN=830 HDL=54 YH=644 LDL=97 TC/HDL=3.2 03/22/19 HD=879 HDL=51 SE=495 LDL=96 TC/HDL=3.3 09/05/19 VQ=790 HDL=52 MF=106 LDL=88 TC/HDL=3.1 Will go to lab today [...] & Plan (09/07/2019 6:58 PM CDT): 06/24/18 JS=774 HDL=54 GE=808 LDL=97 TC/HDL=3.2 03/22/19 NR=394 HDL=51 UF=913 LDL=96 TC/HDL=3.3 09/05/19 BZ=813 HDL=52 WT=477 LDL=88 TC/HDL=3.1 Copy of results given to Mr Muñiz. We will check labs and make adjustments [...] flags. Assessment & Plan (01/17/2019 10:44 AM PIPE COVERER HELPER): We will check labs and make adjustments [...] 2 small adenomas. 02/2009: Small cecal polyp. 2007: [place]-rectal/anal anastomosis. Few proximal colonic diverticuli. Current Treatment and Therapy Plans No current plan information found. Other Current Plans rituximab (RITUXAN or biosimilar) 1000mg?infusion for Rheumatology* Plan Start Date:09/17/2020 Plan Provider:Shyam Power MD PhD Linked Problems Chronic inflammatory demyeli nating polyneuropathy (HCC) Treatment Medications riTUXimab (RITUXAN) IVPB in 500 mL Past Treatment and Therapy Plans Lifetime Dose Tracking * Chemical Lifetime Dose Automatic Entry Manual Entr y Fluoro Time 0.417 minutes 0.417 minutes 0 minutes Air kerma at the reference point (Ka,r) 4.26 mGy 4 .26 mGy 0 mGy Resolved Problems Problem Noted Date Diagnosed Date [...] healthier, we can set up appointment with farm management supervisor/front end specialist. 3. Have an active lifestyle, strive for [...] healthier, we can set up appointment with farm management supervisor/front end specialist. 3. Have an active lifestyle, strive for [...] 07/31/2019 Assessment & Plan (01/17/2019 10:44 AM PIPE COVERER HELPER): Flu vaccine given today. Discussed possible tenderness/redness at injection site. Chronic otitis media of righ t ear with effusion 01/13/2019 07/31/2019 Assessment & Plan (03/22/2019 11:13 AM PIPE COVERER HELPER): Middle ear fluid resolved today. Call if symptoms return May stop with Flonase or decrease to 1 spray into each nostril daily and increase if needed Consider adding antihistamine in the Spring Assessment & Plan (01/13/2019 9:44 AM PIPE COVERER HELPER): Continue Claritin and Flonase 2 sprays into [...] 20 Assessment & Plan (01/17/2019 10:39 AM PIPE COVERER HELPER): Continues to do yoga. Discussed healthy diet [...] CDT): Followed by Dr Leland Sparrow at [facility]. [facility] 11/18/18. Last CRC screening=fall 2016. Assessment & Plan (07/31/2019 10:50 PM CDT): Followed by Dr Leland Sparrow at [facility]. [facility] 11/18/18. Last CRC screening=fall 2016. Therapeutic [...] flags. Assessment & Plan (01/17/2019 10:43 AM PIPE COVERER HELPER): Reports good control of depression w/current regimen. [...]
--- OUTSIDE RECORDS SUMMARY | 2024-07-23 08:05 | XMS_ITS | Data Portability ---
[facility] Address [address] [place] [address] Care Team Providers Care Residential Specialist Name Role Phone ANAHI IZQUIERDO Primary Care Provider Assessment No assessment recorded. Plan of Treatment Reminders Order Date Submit Date Provider Last Modified By Organization Details Last Modified Time Details Appointments None record ed. Lab None record ed. Referral None record ed. Procedures None record ed. Surgeries None record ed. Imaging None record ed. Medication Orders None record ed. Patient TargetsNo targets recorded. Patient InstructionsNo instructions recorded. Reason for Referral None Reported. Procedures Surgical History Date Name Laterality Status Provider Name and Address Organization Details Recorded Time 1 ileoileostomy completed Delia Ramos MA [facility] 03/15/2021 10:10:04 Imaging Results None recorded. Procedure Notes None recorded. Medical Equipment None Reported. Allergies No known drug allergies Medications Name Sig Start Date Stop Date Status Note LastModified by Organization Details LastModified Time losartan 50 mg tablet Take 1 tablet every day by oral route. active Not Available Not Available No t Available atorvastatin 40 mg tablet Take 1 tablet every day by oral route. active Not Available Not Available No t Available meloxicam 15 mg tablet Take 1 tablet every day by oral route. active Not Available Not Available No t Available sertraline 200 mg capsule Take 1 capsule every day by oral route. active Not Available Not Available No t Available Vitals Date Recorded Body weight Body height Body mass index (BMI) Body temperature Oxygen saturation Oxygen saturation in Arterial blood by Pulse oximetry Heart rate Systolic blood pressure Diastolic blood pressure Provider Name and Address Organization Details Last Updated DateTime 2 44622.4 3 g 195.58 cm 24.5 kg/m2 97.4 [degF] 98 % 98 % 105 /min 110 mm[Hg] 76 mm[Hg] Delia Ramos MA [facility] 10:14:28 Social History Question Answer Notes LastModified by Organizat ion Details LastModified Time Tobacco Smoking Status Former Smoker Delia Ramos [place] null, [place] - [facility] 03/15/2021 10:08:25 What Is Your Level Of Caffeine Consumption? Moderate Information not available 03/15/2021 In The 14 Days Before Symptom Onset, Have You Had Close Contact With A Laboratory-confirm ed COVID-19 While That Case Was Ill? No Information n ot available 03/15/2021 In The 14 Days Before Symptom Onset, Have You Had Close Contact With A Person Who Is Under Investigation For COVID-19 While That Person Was Ill? No Information not available 03/15/2021 Have You Been To An Area Known To Be High Risk For COVID-19? No Information not available 03/15/2021 What Type Of Diet Are You Following? REGULAR Information n ot available 03/15/2021 What Was The Date Of Your Most Recent Tobacco Screening? 03/15/2021 Information not available 03/15/2021 What Is Your Relationship Status? Information not available 03/15/2021 Do You Have Smoke And Carbon Monoxide Detectors In Your Home? Yes Information not available 03/15/2021 Are You Passively Exposed To Smoke? Yes Information no t available 03/15/2021 Has Tobacco Cessation Counseling Been Provided? No Information not available 03/15/2021 Sex: Unknown Functional Status Question Answer Note LastModified by Organizat ion Details LastModified Time Do you use any illicit or recreational drugs? Yes Marjuana Information not available 03/15/2021 Do you or have you ever used any other forms of tobacco or nicotine? No Information not available 03/15/2021 What is your level of alcohol consumption? Occasional Information not available 03/15/2021 Are you currently employed? No Information not available 03/15/2021 Are you able to care for yourself? Yes Information not available 03/15/2021 Mental Status Question Answer Note LastModified by Organization D etails LastModified Time Do you feel stressed (tense, restless, nervous, or anxious, or unable to sleep at night)? [id number] Information not available 03/15/2021 Family History Relationship Description Onset Age of this Age Resolved Age Notes LastModified by Organization Details LastModified Time Mother Malignant neoplasm of lung 74 [email or web address] Not available 2021 10:06:59 Father Acute stroke 67 [email or web address] Not avai lable 03/15/2021 10:07:13 Brother Acute stroke 62 [email or web address] Not charm[place] ilable 03/15/2021 10:07:30 Sister Non-Hodgkin' s lymphoma (clinical) [email or web address] Not available 03/15 10:07:50 Medical History Condition Response Coronary Artery Disease N Other N Atrial Fibrillation N High Blood Pressure N Thyroid Problems N Kidney or Bladder Problems N Depression N COPD N Blood Clots N GI Problems N Skin Problems N Eating Disorder N Anemia N Heart Attack (PR) N Diabetes N Anxiety Disorder N Muscle, Joint, or Bone Problems N Seizures/Epilepsy N Acid Reflux (GERD) N Cancer Y Stroke N Allergies N Asthma N ADHD N Substance Abuse N High Cholesterol Y Hepatitis N Liver Disease N Schizophrenia N Headaches N Osteoporosis N Heart Failure N Past Encounters Encounter ID Performer Location Encounter Start Date Encounter Closed Date Diagnosis/Indication Diagnosis SNOMED-CT Code Diagnosis ICD10 Code Diagnosis Note [id number] Anahi Izquierdo PA-C [facility] [address] [place] [address] 03/15/2021 09:54:32 03/15/2021 10:59:37 Removal of suture 78975317 Z48.02 Health Concerns Section Related Observation LastModified by Organization Detai ls LastModified Time None Recorded Concern Status LastModified by Organization Details LastModified Time None Recorded Advance Directives Directive None Recorded Payers Encounter Date Sequence Insurance Name Policy Number Policy Dickens Covered Member ID Dickens Member ID Guarantor Name 03/15/2021 1 [facility] [id number] Anahi Muñiz [id number] Anahi Muñiz Notes Date Note Type Note Provider Name and Address Organization Details Recorded Time 03/15/2021 text/html Patient presents as a new patient. He had 6x stitches placed in in [place] [facility] in his left forearm 2 weeks ago and had trouble removing the stitches, which is the main reason for the visit today. Denies any recent fever, chills, cough. Anahi Izquierdo PA-C Attn: Accounting,[address] [place], [address], [facility] 03/15/2021 10:39:43
--- OUTSIDE RECORDS SUMMARY | 2024-07-23 08:05 | XMS_ITS | Encounter Summary ---
Author Organization [facility] Address [address] [place] [address] Care Team Providers Care Manufacturing Technology Analyst Name Role Phone Mp Barnes MD Primary Care Provider [phone] Shyam Power MD PhD Unavailable + Jen Aaron RN Unavailable [phone] Encounter Details Date Type Department Care Team (Late st Contact Info) Description 08/05/2019 Orders Only Radiology [address] [place] [address] Scanning, Provider Social History Tobacco Use Types Packs/Day Years Used Date Smoking Tobacco: Never Smokeless Tobacco: Never Alcohol Use Standard Drinks/Week Comments Yes 0 (1 standard drink = 0.6 oz pur e alcohol) PHQ-2 Answer Date Recorded PHQ-2 Score 0 10/16/2018 Sex and Gender Information Value Date Recorded Sex Assigned at Not on file Legal Sex 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 Gender Identity Not on file Sexual Orientation Not on file documented as of this encounter Plan of Treatment Not on file documented as of this encounter Procedures Procedure Name Priority Date/Time Associated Diagnosis Comments SCAN - RADIOLOGY/IMAGING 08/05/2019 9:05 PM CDT documented in this encounter Results * SCAN - RADIOLOGY/IMAGING (08/05/2019 9:05 PM CDT) Anatomical Region Laterality Modality Other us Provider Scanning Final Result documented in this encounter Visit Diagnoses Not on filedocumented in this encounter Care Teams Manufacturing Technology Analyst Relationship Specialty Start Date End Date [place] [place] [address] PCP - General 04/08/16 Shyam Power MD PhD [address] [place] [address] Referring Physician Neuromuscular Medicine 09/08/17 Agnieszka, Jen Buckley RN [address] [place] [address] [address] [place] [address] Digital Campaign Specialist 01/01/21 01/15/21 documented as of this encounter
--- OUTSIDE RECORDS SUMMARY | 2024-07-23 08:05 | XMS_ITS | Encounter Summary ---
Author Organization [facility] Address [address] [place] [address] Phone Care Team Providers Care Pricing Consultant Name Role Phone pM Barnes MD Primary Care Provider [phone] Shyam Power MD PhD Unavailable + Encounter Details Date Type Department Care Team (Late st Contact Info) Description 07/22/2024 Orders Only [facility] Neuro Muscle [address] [facility] Advanced Medicine 6th [place] [address] [place] [address] Tyler Garrison, nurses aide inflammatory demyelinating polyneuropathy (HCC) (Primary Dx) Social History Tobacco Use Types Packs/Day Years Used Date Smoking Tobacco: Former Cigarettes 0.5 10 1 968 1977 Smokeless Tobacco: Never Comments:smokes medical michelle belinda Alcohol Use Standard Drinks/Week Comments Yes 0 [...] often do you attend chur ch or episcopalian services? Never 01/01/2021 Do you belong to any clubs o r organizations such as yazdanism groups, unions, fraternal or athletic groups, or [...] place to sleep or slept in a half-way (including now)? No 01/01/2021 Personal Safety Answer Date Recorded Have you ever been in or are you currently in a harmful physical or emotional relationship or is someone making you feel afraid or unsafe? 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 Tyler OLIVARES RN (she/her/hers) [phone] documented in this encounter Plan of Treatment Scheduled Orders Name Type Priority Associated Diagnoses Orde r Schedule Hepatitis B surface antibody (immune status) Blood Blood, Venous Microbiology Routine Chronic inflammatory demyelinating polyneuropathy (HCC) Expected: 07/25/2024, Expires: 07/22/2025 Hepatitis B Surface Antigen Blood Blood, Venous Microbiology Routine Chronic inflammatory demyelinating polyneuropathy (HCC) Expected: 07/25/2024, Expires: 07/22/2025 Hepatitis B core antibody, total Blood Blood, Venous Microbiology Routine Chronic inflammatory demyelinating polyneuropathy (HCC) Expected: 07/25/2024, Expires: 07/22/2025 documented as of this encounter Goals Goal Patient Goal Type Associated Problems Recent Progress Patient-Stated? Author ACO CC Goal - Level of ADL/IADL assistance will meet patient's needs ACO Care Management No change(07/08 1:41 PM CDT) No Lilia Martínez RN Note: Problem: Inadequate assistance to manage [...] SW if appropriate and patient is agreeable. documented as of this encounter Visit Diagnoses Diagnosis Chronic inflammatory demyelinating polyneuropathy (HCC)- Primary Chronic inflammatory demyelinating polyneuritis documented in this encounter Care Teams Pricing Consultant Relationship Specialty Start Date End [place] [address] PCP - General 04/08/16 Shyam Power MD PhD [address] [place] [address] Referring Physician Neuromuscular Medicine 09/08/17 documented as of this encounter
[2024-07-25 16:03] LABS: Hepatitis B Core Ab Total REACTIVE (NON-REACTIVE); Hepatitis B Surface Antibody REACTIVE (NON-REACTIVE); Hepatitis B Surface Antigen NON-REACTIVE (NON-REACTIVE)
== END 2024-07-23 07:58 | disposition home or self-care (01) ==
PROVIDERS: PCP Family Medicine; Visit Provider Psychiatry & Neurology Neurology
DX: G61.81 Chronic inflammatory demyelinating polyneuritis (principal)
CPT/HCPCS: 36415; 86704; 86706; 87340